=== PATIENT | male | born 1985 | race American Indian/Alaskan Native ===

== ENCOUNTER 2018-11-04 20:32 | Emergency (ER) | payer MEDICAID ==
--- NOTE | 2018-11-04 21:27 | EDM.PDOC ---
ED HPI GENERAL MEDICAL PROBLEM - General Stated Complaint: HURT FT MIGHT NEED STICHES Time Seen by Provider: 11/04/18 21:27 Source of Information: Reports: Patient, RN, RN Notes Reviewed History Limitations: Reports: No Limitations - Related Data Allergies Allergy/AdvReac Type Severity Reaction Status Date / Time No Known Allergies Allergy Verified 08/04/15 13:28 Home Meds: Home Meds Acetaminophen [Tylenol Extra Strength] 1,000 mg PO Q6H PRN 08/04/15 [History] Ibuprofen 800 mg PO Q8H PRN 08/04/15 [History] Past Medical History - Past Health History Medical/Surgical History: Denies Medical/Surgical History HEENT History: Reports: None Cardiovascular History: Reports: None Respiratory History: Reports: None Gastrointestinal History: Reports: None Genitourinary History: Reports: None Musculoskeletal History: Reports: None Neurological History: Reports: None Psychiatric History: Reports: None Endocrine/Metabolic History: Reports: None Hematologic History: Reports: None Immunologic History: Reports: None Oncologic (Cancer) History: Reports: None Dermatologic History: Reports: None - Infectious Disease History Infectious Disease History: Reports: None - Past Surgical History Head Surgeries/Procedures: Reports: None Social & Family History - Family History Family Medical History: Noncontributory - Caffeine Use Caffeine Use: Reports: Energy Drinks, Soda - Living Situation & Occupation Living situation: Reports: with Family Occupation: Employed
== END 2018-11-04 21:31 | disposition left against medical advice (07) ==
LOC: DL.ED 20:32
DX: Z53.21 Procedure and treatment not carried out due to patient leaving prior to being seen by health care provider (principal)

== ENCOUNTER 2019-02-08 21:56 | Emergency (ER) | payer MEDICAID ==
--- NOTE | 2019-02-08 23:26 | EDM.PDOC ---
ED HPI GENERAL MEDICAL PROBLEM - General Chief Complaint: Upper Extremity Injury/Pain Stated Complaint: BROKE OR DISLOCATED LEFT THUMB PER PT Time Seen by Provider: 02/08/19 23:10 Source of Information: Reports: Patient History Limitations: Reports: No Limitations - History of Present Illness INITIAL COMMENTS - FREE TEXT/NARRATIVE: This 34 yo male patient reports to the ED with pain in his left thumb. The patient reports he was lifting a tire out of a car when the lid of the trunk fell against his thumb and bent it back. Pt with limited ROM, pain, and numbness to thumb. Onset: Today Duration: Minutes: Location: Reports: Upper Extremity, Left Quality: Reports: Ache, Dull Severity: Moderate Improves with: Reports: None Worsens with: Reports: None Context: Reports: Trauma Left Finger-Thumb Pain Score (Numeric/FACES): 6 - Related Data Allergies Allergy/AdvReac Type Severity Reaction Status Date / Time No Known Allergies Allergy Verified 08/04/15 13:28 Home Meds: Home Meds Acetaminophen [Tylenol Extra Strength] 1,000 mg PO Q6H PRN 08/04/15 [History] Ibuprofen 800 mg PO Q8H PRN 08/04/15 [History] Past Medical History - Past Health History Medical/Surgical History: Denies Medical/Surgical History HEENT History: Reports: None Cardiovascular History: Reports: None Respiratory History: Reports: None Gastrointestinal History: Reports: None Genitourinary History: Reports: None Musculoskeletal History: Reports: None Neurological History: Reports: None Psychiatric History: Reports: None Endocrine/Metabolic History: Reports: None Hematologic History: Reports: None Immunologic History: Reports: None Oncologic (Cancer) History: Reports: None Dermatologic History: Reports: None - Infectious Disease History Infectious Disease History: Reports: None - Past Surgical History Head Surgeries/Procedures: Reports: None Social & Family History - Family History Family Medical History: Noncontributory - Tobacco Use Smoking Status *Q: Never Smoker - Caffeine Use Caffeine Use: Reports: Energy Drinks, Soda - Recreational Drug Use Recreational Drug Use: No - Living Situation & Occupation Living situation: Reports: with Family Occupation: Employed Review of Systems - Review of Systems Review Of Systems: ROS reveals no pertinent complaints other than HPI. ED EXAM, GENERAL - Physical Exam Exam: See Below Exam Limited By: No Limitations General Appearance: Alert, WD/WN, Mild Distress Eye Exam: Bilateral Eye: EOMI, Normal Inspection, PERRL Ears: Normal External Exam, Normal Canal, Hearing Grossly Normal, Normal TMs Nose: Normal Inspection, Normal Mucosa, No Blood Throat/Mouth: Normal Inspection, Normal Lips, Normal Teeth, Normal Gums, Normal Oropharynx, Normal Voice, No Airway Compromise Head: Atraumatic, Normocephalic Neck: Normal Inspection, Supple, Non-Tender, Full Range of Motion Respiratory/Chest: No Respiratory Distress, Lungs Clear, Normal Breath Sounds, No Accessory Muscle Use, Chest Non-Tender Cardiovascular: Normal Peripheral Pulses, Regular Rate, Rhythm, No Edema, No Gallop, No JVD, No Murmur, No Rub GI/Abdominal: Normal Bowel Sounds, Soft, Non-Tender, No Organomegaly, No Distention, No Abnormal Bruit, No Mass (Male) Exam: Deferred Rectal (Males) Exam: Deferred Back Exam: Normal Inspection, Full Range of Motion, NT Extremities: Other (left hand/thumb pain) Neurological: Alert, Oriented, CN II-XII Intact, Normal Cognition, Normal Gait, Normal Reflexes, No Motor/Sensory Deficits Psychiatric: Normal Affect, Normal Mood Skin Exam: Warm, Dry, Intact, Normal Color, No Rash Lymphatic: No Adenopathy Course - Vital Signs Last Recorded V/S: Last Vital Signs Temp 36.6 C 02/08/19 22:15 Pulse 112 H 02/08/19 22:15 Resp 20 02/08/19 22:15 BP 146/90 H 02/08/19 22:15 Pulse Ox 94 L 02/08/19 22:15 - Orders/Labs/Meds Orders: Active Orders 24 hr Category Date Time Status Fingers Thumb Lt FA [CR] Urgent Exams 02/08/19 22:29 Taken Departure - Departure Time of Disposition: 23:25 Disposition: Home, Self-Care 01 Condition: Fair Clinical Impression: Strain of left thumb - Discharge Information *PRESCRIPTION DRUG MONITORING PROGRAM REVIEWED*: Not Applicable *COPY OF PRESCRIPTION DRUG MONITORING REPORT IN PATIENT DEEJAY: Not Applicable Instructions: Cast or Splint Care, Adult, [id number] Care Plan Goals: The patient was advised of the examination and x-ray results during the visit. The patient was placed in a left thumb spica splint (manufactured velcro splint ) to support healing. The patient was encouraged to rest, ice and elevate the left hand over the next 48 hours. The patient should follow-up with his primary care facility if he is still having increased pain after a week. If the patient has any additional symptoms or concerns, the patient should either return to the emergency department or visit his primary care facility. - My Orders Last 24 Hours: My Active Orders 02/08/19 22:29 Fingers Thumb Lt FA [CR] Urgent - Assessment/Plan Last 24 Hours: My Active Orders 02/08/19 22:29 Fingers Thumb Lt FA [CR] Urgent
[2019-02-08 23:32] VITALS: BP 153/94; PULSE 102
== END 2019-02-08 23:35 | disposition home or self-care (01) ==
LOC: DL.ED 21:56
DX: S56.312A Strain of extensor or abductor muscles, fascia and tendons of left thumb at forearm level, initial encounter (principal); W20.8XXA Other cause of strike by thrown, projected or falling object, initial encounter
CPT/HCPCS: 73140-FA; 99283-25

== ENCOUNTER 2019-06-04 15:03 | Emergency (ER) | payer MEDICAID ==
[2019-06-04] MEDS ORDERED: Ketorolac 30 MG/ML SDV IM ONE (16:41)
[2019-06-04 19:07] VITALS: BP 134/110; PULSE 93
[2019-06-04] MEDS ORDERED: Ibuprofen 600 MG Tab PO ONE (19:39)
--- NOTE | 2019-06-09 15:34 | EDM.PDOC ---
Scribed by Molly Chávez 06/[birth year]/19 1939 for Jaclyn Reed PA-C ED HPI GENERAL MEDICAL PROBLEM - General Chief Complaint: Chest Pain Stated Complaint: SLIPPED ON ICE/CHEST HURTS Time Seen by Provider: 06/04/19 19:34 Source of Information: Reports: Patient History Limitations: Reports: No Limitations - History of Present Illness INITIAL COMMENTS - FREE TEXT/NARRATIVE: ED ambulatory with c/o right rib pain, fell night. Thinks maybe fell on something but no idea what Some SOB. Pain to take deep breath. No fever. Not noted any bruising. Has not taken anything for pain. Left Chest Pain Score (Numeric/FACES): 4 - Related Data Allergies Allergy/AdvReac Type Severity Reaction Status Date / Time No Known Allergies Allergy Verified 06/04/19 16:39 Past Medical History - Past Health History Medical/Surgical History: Denies Medical/Surgical History HEENT History: Reports: None Cardiovascular History: Reports: None Respiratory History: Reports: None Gastrointestinal History: Reports: None Genitourinary History: Reports: None Musculoskeletal History: Reports: None, Fracture Other Musculoskeletal History: Fx Rt ankle with ligiment tear. Neurological History: Reports: None Psychiatric History: Reports: None Endocrine/Metabolic History: Reports: None Hematologic History: Reports: None Immunologic History: Reports: None Oncologic (Cancer) History: Reports: None Dermatologic History: Reports: None - Infectious Disease History Infectious Disease History: Reports: None - Past Surgical History Head Surgeries/Procedures: Reports: None GI Surgical History: Reports: Cholecystectomy Social & Family History - Family History Family Medical History: Noncontributory - Tobacco Use Smoking Status *Q: Former Smoker Years of Tobacco use: 7 Packs/Tins Daily: 0.1 Used Tobacco, but Quit: Yes Month/Year Tobacco Last Used: jun - Caffeine Use Caffeine Use: Reports: Energy Drinks, Soda - Recreational Drug Use Recreational Drug Use: No - Living Situation & Occupation Living situation: Reports: with Family Occupation: Employed ED ROS GENERAL - Review of Systems Review Of Systems: Comprehensive ROS is negative, except as noted in HPI. ED EXAM, GENERAL - Physical Exam Exam: See Below Exam Limited By: No Limitations General Appearance: Alert, Mild Distress Eye Exam: Bilateral Eye: EOMI Ears: Normal External Exam, Hearing Grossly Normal Nose: Normal Inspection Throat/Mouth: Normal Inspection Head: Atraumatic, Normocephalic Neck: Normal Inspection Respiratory/Chest: No Respiratory Distress, Lungs Clear, Decreased Breath Sounds. No: Crackles, Rales, Rhonchi, Wheezing Cardiovascular: Normal Peripheral Pulses, Regular Rate, Rhythm GI/Abdominal: Normal Bowel Sounds Back Exam: Full Range of Motion Extremities: Normal Inspection Neurological: Alert, Oriented, Normal Cognition Psychiatric: Normal Affect, Normal Mood Skin Exam: Warm, Dry, Intact, Normal Color. No: Ecchymosis Course - Vital Signs Last Recorded V/S: Last Vital Signs Temp 97.1 F 06/04/19 19:07 Pulse 93 06/04/19 19:07 Resp 16 06/04/19 19:07 BP 134/110 H 06/04/19 19:07 Pulse Ox 99 06/04/19 19:07 - Orders/Labs/Meds Meds: Medications Discontinued Medications Generic Name Dose Route Start Last Admin Trade Name Brianq PRN Reason Stop Dose Admin Ibuprofen 600 mg 06/04/19 19:39 06/04/19 19:43 Motrin PO 06/04/19 19:40 600 mg ONETIME ONE Administration Ketorolac Tromethamine 30 mg 06/04/19 16:41 06/04/19 16:51 Toradol IM 06/04/19 16:42 30 mg ONETIME ONE Administration - Radiology Interpretation Free Text/Narrative:: Rib x-rays: No acute findings. See rad report. Departure - Departure Time of Disposition: 19:40 Disposition: Home, Self-Care 01 Condition: Good Clinical Impression: Rib pain on right side - Discharge Information *PRESCRIPTION DRUG MONITORING PROGRAM REVIEWED*: No *COPY OF PRESCRIPTION DRUG MONITORING REPORT IN PATIENT DEEJAY: No Instructions: Rib Contusion Forms: ED Department Discharge Additional Instructions: deep breathing exercises every hour while awake with incentive spirometer splint chest area with cough sneezing or twisting movements alternate tylenol 650mg and ibuprofen 600mg every 4 hours as needed for discomfort heat or ice to area for comfort follow up in clinic next week if not improving Sepsis Event Note - Evaluation Sepsis Screening Result: No Definite Risk - Focused Exam Date Exam was Performed: 06/09/19 Time Exam was Performed: 15:34 I have read and agree with the documentation that has been completed regarding this visit. By signing this record, I attest that the documentation was completed in my physical presence and is an accurate record of the encounter.
== END 2019-06-04 19:50 | disposition home or self-care (01) ==
LOC: DL.ED 15:03
DX: R07.81 Pleurodynia (principal); Z90.49 Acquired absence of other specified parts of digestive tract; Z87.891 Personal history of nicotine dependence; W19.XXXA Unspecified fall, initial encounter
CPT/HCPCS: 71101; 96372; 99285; A9270; J1885

== ENCOUNTER 2019-12-27 11:53 | Emergency (ER) | payer MEDICAID ==
[2019-12-27] MEDS ORDERED: Sodium Chloride 0.9% 10 ML Syringe FLUSH PRN (12:15)
--- NOTE | 2019-12-27 12:22 | EDM.PDOC ---
ED HPI GENERAL MEDICAL PROBLEM - General Chief Complaint: General Stated Complaint: RIGHT HAND RED & SWELLING Time Seen by Provider: 12/27/19 12:10 Source of Information: Reports: Patient History Limitations: Reports: No Limitations - History of Present Illness INITIAL COMMENTS - FREE TEXT/NARRATIVE: This 34 yo male patient reports to the ED with redness and swelling of his right hand and both feet. The patient reports he noticed the swelling in his right hand 2 days ago. The patient does not know of any injuries to the hand. The patient reports he noticed the redness and swelling in his feet yesterday morning. 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 Onset Date: 12/25/19 Duration: Constant, Getting Worse Location: Reports: Upper Extremity, Right, Lower Extremity, Left, Lower Extremity, Right Quality: Reports: Ache, Dull Severity: Moderate Improves with: Reports: None Worsens with: Reports: None Context: Reports: Other Right Hand Pain Score (Numeric/FACES): 7 - Related Data Allergies Allergy/AdvReac Type Severity Reaction Status Date / Time No Known Allergies Allergy Verified 12/27/19 12:04 Home Meds: Home Meds . [No Known Home Meds] 12/27/19 [History] Past Medical History - Past Health History Medical/Surgical History: Denies Medical/Surgical History HEENT History: Reports: None Cardiovascular History: Reports: None Respiratory History: Reports: None Gastrointestinal History: Reports: Cholelithiasis Genitourinary History: Reports: None Musculoskeletal History: Reports: Fracture Other Musculoskeletal History: Fx Rt ankle with ligiment tear. Neurological History: Reports: None Psychiatric History: Reports: None Endocrine/Metabolic History: Reports: None Hematologic History: Reports: None Immunologic History: Reports: None Oncologic (Cancer) History: Reports: None Dermatologic History: Reports: None - Infectious Disease History Infectious Disease History: Reports: None - Past Surgical History Head Surgeries/Procedures: Reports: None GI Surgical History: Reports: Cholecystectomy Social & Family History - Family History Family Medical History: Noncontributory - Tobacco Use Smoking Status *Q: Never Smoker Second Hand Smoke Exposure: No - Caffeine Use Caffeine Use: Reports: Energy Drinks, Soda - Living Situation & Occupation Living situation: Reports: with Family Occupation: Employed ED ROS GENERAL - Review of Systems Review Of Systems: Comprehensive ROS is negative, except as noted in HPI. ED EXAM, GENERAL - Physical Exam Exam: See Below Exam Limited By: No Limitations General Appearance: Alert, WD/WN, Moderate Distress Eye Exam: Bilateral Eye: EOMI, Normal Inspection, PERRL Ears: Normal External Exam, Normal Canal, Hearing Grossly Normal, Normal TMs Nose: Normal Inspection, Normal Mucosa, No Blood Throat/Mouth: Normal Inspection, Normal Lips, Normal Teeth, Normal Gums, Normal Oropharynx, Normal Voice, No Airway Compromise Head: Atraumatic, Normocephalic Neck: Normal Inspection, Supple, Non-Tender, Full Range of Motion Respiratory/Chest: No Respiratory Distress, Lungs Clear, Normal Breath Sounds, No Accessory Muscle Use, Chest Non-Tender Cardiovascular: Normal Peripheral Pulses, Regular Rate, Rhythm, No Edema, No Gallop, No JVD, No Murmur, No Rub GI/Abdominal: Normal Bowel Sounds, Soft, Non-Tender, No Organomegaly, No Distention, No Abnormal Bruit, No Mass (Male) Exam: Deferred Rectal (Males) Exam: Deferred Back Exam: Normal Inspection, Full Range of Motion, NT Extremities: Arm Pain (Right hand swelling, redness and pain with palpation), Leg Pain (bilateral foot redness and swelling) Neurological: Alert, Oriented, CN II-XII Intact, Normal Cognition, Normal Gait, Normal Reflexes, No Motor/Sensory Deficits Psychiatric: Normal Affect, Normal Mood Skin Exam: Erythema (Right hand and flexor surface of feet), Increased Warmth (right hand), Wound/Incision (small healing wound to right lateral hand) Lymphatic: No Adenopathy Course - Vital Signs Last Recorded V/S: Last Vital Signs Temp 37.6 C 12/27/19 13:39 Pulse 121 H 12/27/19 12:00 Resp 18 12/27/19 12:00 BP 152/82 H 12/27/19 12:00 Pulse Ox 97 12/27/19 12:00 - Orders/Labs/Meds Orders: Active Orders 24 hr Category Date Time Status CULTURE BLOOD [BC] Stat Lab 12/27/19 12:16 Ordered CULTURE BLOOD [BC] Stat Lab 12/27/19 12:16 Ordered Sodium Chloride 0.9% [Saline Flush] Med 12/27/19 12:15 Ordered 10 ml FLUSH ASDIRECTED PRN Blood Culture x2 Reflex Set [OM.PC] Stat Oth 12/27/19 12:15 Ordered Saline Lock Insert [OM.PC] Routine Oth 12/27/19 12:15 Ordered Medication Orders Sodium Chloride (Saline Flush) 10 ml FLUSH ASDIRECTED PRN PRN Reason: Keep Vein Open Last Admin: 12/27/19 12:20 Dose: 10 ml Documented by: ANDRES Labs: Laboratory Tests 12/27/19 12/27/19 12/27/19 Range/Units 12:24 12:24 12:24 WBC 15.8 H (5.0-10.0) 10^3/uL RBC 3.75 L (4.6-6.2) 10^6/uL Hgb 11.7 L D (14.0-18.0) g/dL Hct 35.5 L (40.0-54.0) % MCV 94.7 D (80-100) fL MCH 31.2 (27.0-34.0) pg MCHC 33.0 (33.0-35.0) g/dL Plt Count 140 L D (150-450) 10^3/uL Neut % (Auto) 74.6 (42.2-75.2) % Lymph % (Auto) 15.1 L (20.5-50.1) % Pershing % (Auto) 9.9 H (2-8) % Eos % (Auto) 0.2 L (1.0-3.0) % Baso % (Auto) 0.2 (0.0-1.0) % Sodium 130 L (136-145) mmol/L Potassium 3.2 L (3.5-5.1) mmol/L Chloride 97 L (98-107) mmol/L Carbon Dioxide 25 (21-32) mmol/L Anion Gap 11.2 (7-13) mEq/L BUN 8 (7-18) mg/dL Creatinine 0.80 (0.70-1.30) mg/dL Est Cr Clr Drug Dosing 165.52 mL/min Estimated GFR (MDRD) > 60 BUN/Creatinine Ratio 10.0 (No establ ref range) Glucose 103 H (74-99) mg/dL Lactic Acid 1.4 (0.4-2.0) mmol/L Calcium 8.1 L (8.5-10.1) mg/dL Total Bilirubin 3.3 H (0.2-1.0) mg/dL AST 139 H (15-37) U/L ALT 35 (16-63) U/L Alkaline Phosphatase 217 H (46-116) U/L Total Protein 9.2 H (6.4-8.2) g/dL Albumin 2.6 L (3.4-5.0) g/dL Globulin 6.6 Albumin/Globulin Ratio 0.39 Meds: Medications Generic Name Dose Route Start Last Admin Trade Name Freq PRN Reason Stop Dose Admin Sodium Chloride 10 ml 12/27/19 12:15 12/27/19 12:20 Saline Flush FLUSH 10 ml ASDIRECTED PRN Administration Keep Vein Open Discontinued Medications Generic Name Dose Route Start Last Admin Trade Name Freq PRN Reason Stop Dose Admin Vancomycin HCl 1.75 gm/ Sodium 500 mls @ 334 mls/hr 12/27/19 13:07 12/27/19 13:37 Chloride IV 12/27/19 14:36 250 mls/hr ONETIME ONE Administration Departure - Departure Time of Disposition: 14:57 Disposition: Home, Self-Care 01 Condition: Fair Clinical Impression: Cellulitis of hand - Discharge Information *PRESCRIPTION DRUG MONITORING PROGRAM REVIEWED*: Not Applicable *COPY OF PRESCRIPTION DRUG MONITORING REPORT IN PATIENT DEEJAY: Not Applicable Instructions: Cellulitis, Adult, [id number] Forms: ED Department Discharge Care Plan Goals: The patient was advised of the examination, lab and x-ray results during the visit. The patient was given an IV dose of Vancomycin while in the ED. The patient was discharged with a script for Bactrim DS to take 1 by mouth 2 times per day for 10 days and Keflex (500 mg) #40 to take 1 by mouth 4 times per day for 10 days. The patient was encouraged to follow-up with his primary care facility for continued evaluatin and management. If the patient has any additional symptoms or concerns, the patient should either return to the emergency department or visit his primary care facility. Sepsis Event Note (ED) - Evaluation Sepsis Screening Result: No Definite Risk - Focused Exam Vital Signs: Vital Signs Temp Pulse Resp BP Pulse Ox 12/27/19 13:39 37.6 C 12/27/19 12:00 37.9 C 121 H 18 152/82 H 97 - My Orders Last 24 Hours: My Active Orders 12/27/19 12:15 Sodium Chloride 0.9% [Saline Flush] 10 ml FLUSH ASDIRECTED PRN Blood Culture x2 Reflex Set [OM.PC] Stat Saline Lock Insert [OM.PC] Routine 12/27/19 12:16 CULTURE BLOOD [BC] Stat CULTURE BLOOD [BC] Stat - Assessment/Plan Last 24 Hours: My Active Orders 12/27/19 12:15 Sodium Chloride 0.9% [Saline Flush] 10 ml FLUSH ASDIRECTED PRN Blood Culture x2 Reflex Set [OM.PC] Stat Saline Lock Insert [OM.PC] Routine 12/27/19 12:16 CULTURE BLOOD [BC] Stat CULTURE BLOOD [BC] Stat
--- NOTE | 2019-12-27 12:45 | CR ---
PROCEDURE INFORMATION: Exam: XR Right Hand Exam date and time: 12/27/2019 12:30 PM Age: 34 years old Clinical indication: Other: Right hand swelling and erythema TECHNIQUE: Imaging protocol: XR Right hand. Views: 3 or more views. COMPARISON: No relevant prior studies available. FINDINGS: Bones/joints: Healed fracture of mid 5th metacarpal. No acute fracture. No degenerative spurring or osseous erosion. No periosteal thickening. Soft tissues: Medial soft tissue swelling. No hematoma or soft tissue foreign body. IMPRESSION: Medial mid hand soft tissue swelling.
[2019-12-27 13:07] LABS: ANION GAP 11.2 mEq/L (7-13); CHLORIDE,CL 97 mmol/L (98-107); SODIUM,NA 130 mmol/L (136-145)
[2019-12-27] MEDS ORDERED: Vancomycin 1.75 GM in Sodium Chloride 0.9% 500 ML IV ONE (13:07)
[2019-12-27] MEDS ORDERED: Acetaminophen/HYDROcodone 325-5 MG Tab PO ONE (15:34)
[2019-12-27 15:43] VITALS: BP 135/72; PULSE 114
== END 2019-12-27 15:50 | disposition home or self-care (01) ==
LOC: DL.ED 11:53
DX: L03.113 Cellulitis of right upper limb (principal)
CPT/HCPCS: 36415; 73130-RT; 80053; 83605; 85025; 87040; 96365; 96366; 99283-25; A9270-GY; J3370; J7040

== ENCOUNTER 2022-01-28 14:45 | Emergency (ER) | payer MEDICAID ==
[2022-01-28] MEDS ORDERED: Sodium Chloride 0.9% 1,000 ML IV ONE (16:33)
[2022-01-28] MEDS ORDERED: Iopamidol 612 MG/ML 100 ML Bottle IVPUSH ONE (17:08)
[2022-01-28] MEDS ORDERED: Potassium Chloride 10 MEQ Tab.ER PO ONE (17:26)
== END 2022-01-28 20:12 | disposition home or self-care (01) ==
LOC: DL.ED 14:45
DX: L03.211 Cellulitis of face (principal); I10 Essential (primary) hypertension
CPT/HCPCS: 36415; 70487; 80053; 83605; 84145; 85025; 86140; 87040; 96361; 96365; 96366; 99284; A9270; J3370; J7030; J7040; Q9967

== ENCOUNTER 2022-06-29 17:45 | Emergency (ER) | payer MEDICAID ==
[2022-06-29] MEDS ORDERED: Pantoprazole 40 MG Vial IVPUSH ONE (19:01)
[2022-06-29 19:17] LABS: PTT,PARTIAL THROMBOPLSTIN TIME 30.6 SEC (22.0-34.0)
[2022-06-29 19:24] LABS: AMPHETAMINES,URINE NEGATIVE (NEGATIVE); BARBITURATES,URINE NEGATIVE (NEGATIVE); BENZODIAZEPINE,URINE NEGATIVE (NEGATIVE); MDMA (ECSTASY), URINE NEGATIVE (NEGATIVE); METHADONE,URINE NEGATIVE (NEGATIVE); METHAMPHETAMINES,URINE NEGATIVE (NEGATIVE); OPIATES,URINE NEGATIVE (NEGATIVE); OXYCODONE,URINE NEGATIVE (NEGATIVE); PHENCYCLIDINE,URINE NEGATIVE (NEGATIVE); TCA,URINE NEGATIVE (NEGATIVE)
[2022-06-29 19:29] LABS: ANION GAP 12.4 mEq/L (7-13)
[2022-06-29 19:58] LABS: CORONAVIRUS COVID-19 NAA NEGATIVE (NEGATIVE); RESPIRATORY SYNCYTIAL VIR NAA NEGATIVE (NEGATIVE)
[2022-06-29 22:22] VITALS: BP 113/72; PULSE 101
== END 2022-06-29 22:38 ==
LOC: DL.ED 17:45
DX: K92.2 Gastrointestinal hemorrhage, unspecified (principal); K72.90 Hepatic failure, unspecified without coma; E72.20 Disorder of urea cycle metabolism, unspecified; I10 Essential (primary) hypertension; Y90.8 Blood alcohol level of 240 mg/100 ml or more; Z20.822 Contact with and (suspected) exposure to COVID-19
CPT/HCPCS: 0241U; 36415; 36430; 80053; 80305; 80307; 82140; 82150; 82272; 83605; 83690; 83735; 84443; 85018; 85025; 85610; 85730; 86140; 86850; 86900; 86901; 86920; 86922; 96374; 99284; C9113; P9016; 99285

== ENCOUNTER 2022-07-28 23:20 | Emergency (ER) | payer MEDICAID ==
[2022-07-28 22:36] LABS: ANION GAP 11.4 mEq/L (7-13)
[~2022-07-28 23:20] MED LIST: Bacitracin Oint 1 GM U/D Packet TOP ONE; Lidocaine 1% 5 ML VIAL INJECT ONE
[2022-07-28 23:32] LABS: AMPHETAMINES,URINE NEGATIVE (NEGATIVE); BARBITURATES,URINE NEGATIVE (NEGATIVE); BENZODIAZEPINE,URINE NEGATIVE (NEGATIVE); MDMA (ECSTASY), URINE NEGATIVE (NEGATIVE); METHADONE,URINE NEGATIVE (NEGATIVE); METHAMPHETAMINES,URINE POSITIVE (NEGATIVE); OPIATES,URINE NEGATIVE (NEGATIVE); OXYCODONE,URINE NEGATIVE (NEGATIVE); PHENCYCLIDINE,URINE NEGATIVE (NEGATIVE); TCA,URINE NEGATIVE (NEGATIVE)
[2022-07-29 02:47] VITALS: BP 133/93; PULSE 113
== END 2022-07-29 02:32 | disposition home or self-care (01) ==
LOC: DL.ED 23:20
DX: S01.312A Laceration without foreign body of left ear, initial encounter (principal); D64.9 Anemia, unspecified; I10 Essential (primary) hypertension; Y04.0XXA Assault by unarmed brawl or fight, initial encounter
CPT/HCPCS: 12011; 36415; 36430; 70450; 72125; 80053; 80143; 80179; 80305-QW; 80307; 81001; 83605; 85025; 86850; 86900; 86901; 86920; 86922; 87040; 99284; A9270-GY; J3490; P9016

== ENCOUNTER 2022-07-30 16:07 | Emergency (ER) | payer MEDICAID ==
[2022-07-30 17:13] LABS: CHLORIDE,CL 92 mmol/L (98-107)
[2022-07-30 17:14] LABS: ESTIMATED GFR 66 mL/min (>=60)
[2022-07-30 17:22] VITALS: BP 108/49; PULSE 116
[2022-07-30 17:24] LABS: PTT,PARTIAL THROMBOPLSTIN TIME 36.3 SEC (22.0-34.0)
[2022-07-30] MEDS ORDERED: Sodium Chloride 0.9% 1,000 ML IV ONE (17:28)
[2022-07-30] MEDS ORDERED: Iopamidol 612 MG/ML 100 ML Bottle IVPUSH ONE (17:34)
[2022-07-30 17:44] LABS: CORONAVIRUS COVID-19 NAA NEGATIVE (NEGATIVE); RESPIRATORY SYNCYTIAL VIR NAA NEGATIVE (NEGATIVE)
[2022-07-30] MEDS ORDERED: Piperacillin/Tazobactam 4.5 GM in Sodium Chloride 0.9% 100 ML IV ONE (17:58)
[2022-07-30] MEDS ORDERED: Magnesium Sulfate/Water 2 GM in Premix Bag 1 BAG IV ONE (19:11)
[2022-07-30] MEDS ORDERED: Albumin Human 25 GM in Premix Bag 1 BAG IV ONE (19:20)
[2022-07-30] MEDS ORDERED: Furosemide 100 MG/10 ML SDV IVPUSH ONE (19:20)
[2022-07-30 19:48] LABS: METHAMPHETAMINES,URINE POSITIVE (NEGATIVE)
[2022-07-30 19:49] LABS: AMPHETAMINES,URINE NEGATIVE (NEGATIVE); BARBITURATES,URINE POSITIVE (NEGATIVE); BENZODIAZEPINE,URINE NEGATIVE (NEGATIVE); MDMA (ECSTASY), URINE NEGATIVE (NEGATIVE); METHADONE,URINE NEGATIVE (NEGATIVE); OPIATES,URINE NEGATIVE (NEGATIVE); OXYCODONE,URINE NEGATIVE (NEGATIVE); PHENCYCLIDINE,URINE NEGATIVE (NEGATIVE); TCA,URINE NEGATIVE (NEGATIVE)
[2022-07-31 08:56] LABS: ANION GAP 16.5 mEq/L (7-13); SODIUM,NA 128 mmol/L (136-145)
== END 2022-07-30 20:30 ==
LOC: DL.ED 16:07
DX: A41.9 Sepsis, unspecified organism (principal); K70.31 Alcoholic cirrhosis of liver with ascites; E87.1 Hypo-osmolality and hyponatremia; E83.42 Hypomagnesemia; E88.09 Other disorders of plasma-protein metabolism, not elsewhere classified; D64.9 Anemia, unspecified; I10 Essential (primary) hypertension; Z20.822 Contact with and (suspected) exposure to COVID-19
CPT/HCPCS: 0241U; 36415; 71045; 74177; 80053; 80305-QW; 80307; 81001; 82150; 83605; 83690; 83735; 83880; 84145; 84484; 85025; 85610; 85730; 86140; 87040; 93005; 93010; 96365; 96367; 96368; 96375; 99285; 99285-25; J1940; J2543; J3475; J7030; J7050; P9047; Q9967

== ENCOUNTER 2022-08-23 12:30 | Emergency (ER) | payer MEDICAID ==
[2022-08-23 14:23] LABS: ANION GAP 13.4 mEq/L (7-13)
[2022-08-23] MEDS ORDERED: Furosemide 40 MG/4 ML VIAL IVPUSH ONE (14:39)
[2022-08-23 21:45] VITALS: BP 117/54; PULSE 106
== END 2022-08-23 21:43 | disposition home or self-care (01) ==
LOC: DL.ED 12:30
DX: D64.9 Anemia, unspecified (principal); I10 Essential (primary) hypertension; Z79.899 Other long term (current) drug therapy
CPT/HCPCS: 36415; 36430; 80053; 85025; 85610; 86850; 86900; 86901; 86920; 86922; 96374; 99283; 99284-25; J1940; P9016

== ENCOUNTER 2022-10-04 11:17 | Emergency (ER) | payer MEDICAID ==
[2022-10-04 11:41] LABS: HEMATOCRIT 22.3 % (40.0-54.0)
[2022-10-04] MEDS ORDERED: Sodium Chloride 0.9% 10 ML Syringe FLUSH PRN (11:55)
[2022-10-04] MEDS ORDERED: Furosemide 40 MG/4 ML VIAL IVPUSH ONE (11:55)
[2022-10-04] MEDS ORDERED: diphenhydrAMINE 50 MG/ML SDV IV ONE (11:55)
[2022-10-04] MEDS ORDERED: Sodium Chloride 0.9% 10 ML Syringe FLUSH ONE (12:01)
[2022-10-04] MEDS ORDERED: Furosemide 20 MG/2 ML VIAL IVPUSH ONE (16:46)
[2022-10-04 19:59] VITALS: BP 108/48; PULSE 105
== END 2022-10-04 20:00 | disposition home or self-care (01) ==
LOC: DL.ED 11:17
DX: K72.10 Chronic hepatic failure without coma (principal); D64.9 Anemia, unspecified; I10 Essential (primary) hypertension; Z79.899 Other long term (current) drug therapy
CPT/HCPCS: 36415; 36430; 85014; 85018; 86850; 86900; 86901; 86920; 86922; 96374; 99283; 99284-25; J1940; J3490; P9016

== ENCOUNTER 2022-10-18 12:01 | Emergency (ER) | payer MEDICAID ==
[2022-10-18 12:24] LABS: BASOPHILS PERCENT AUTO 0.3 % (0.0-1.0); EOSINOPHILS PERCENT AUTO 4.9 % (1.0-3.0); HEMATOCRIT 26.3 % (40.0-54.0); HEMOGLOBIN 8.5 g/dL (14.0-18.0); LYMPHOCYTES PERCENT AUTO 37.1 % (20.5-50.1); MEAN CORPUSCULAR HGB CONC 32.3 g/dL (33.0-35.0); MEAN CORPUSCULAR VOLUME 89.8 fL (80-100); MONOCYTES PERCENT AUTO 9.1 % (2-8); NEUTROPHILS PERCENT AUTO 48.6 % (42.2-75.2); PLATELET COUNT,PLT 83 10^3/uL (150-450); RED BLOOD CELL COUNT 2.93 10^6/uL (4.6-6.2); WHITE BLOOD CELL COUNT,WBC 3.5 10^3/uL (5.0-10.0)
[2022-10-18 12:31] VITALS: BP 132/76; PULSE 89
== END 2022-10-18 12:31 | disposition home or self-care (01) ==
LOC: DL.ED 12:01
DX: D64.9 Anemia, unspecified (principal); Z86.16 Personal history of COVID-19; Z79.899 Other long term (current) drug therapy
CPT/HCPCS: 36415; 85025; 99283; 99284

== ENCOUNTER 2023-01-14 17:27 | Emergency (ER) | payer MEDICAID ==
[2023-01-14] MEDS ORDERED: Sodium Chloride 0.9% 10 ML Syringe FLUSH PRN ×2 (17:35→17:37)
[2023-01-14] MEDS ORDERED: Sodium Chloride 0.9% 1,000 ML IV ONE ×2 (17:37→18:23)
[2023-01-14] MEDS ORDERED: Acetaminophen 325 MG Supp RECTAL ONE (17:38)
[2023-01-14] MEDS ORDERED: Acetaminophen 650 MG Supp RECTAL STA (17:39)
[2023-01-14 18:00] LABS: HEMATOCRIT 27.7 % (40.0-54.0); HEMOGLOBIN 9.3 g/dL (14.0-18.0); MEAN CORPUSCULAR HEMOGLOBIN 27.3 pg (27.0-34.0); MEAN CORPUSCULAR HGB CONC 33.6 g/dL (33.0-35.0); MEAN CORPUSCULAR VOLUME 81.2 fL (80-100); PLATELET COUNT,PLT 55 10^3/uL (150-450); RED BLOOD CELL COUNT 3.41 10^6/uL (4.6-6.2)
[2023-01-14 18:04] LABS: O2 DELIVERY DEVICE ROOM AIR
[2023-01-14 18:05] LABS: BASE EXCESS ARTERIAL -6 mmol/L ((-2)-(+3)); BICARBONATE,ARTERIAL 16.2 mmol/L (22-26); O2 SATURATION ARTERIAL 97 % (95-100); PCO2 ARTERIAL 22 mmHg (35-45); PH,ARTERIAL 7.49 (7.35-7.45); PO2 ARTERIAL 78 mmHg (70-100)
[2023-01-14 18:06] LABS: ALLEN TEST POSITIVE
[2023-01-14 18:10] LABS: WHITE BLOOD CELL COUNT,WBC 1.4 10^3/uL (5.0-10.0)
[2023-01-14 18:22] LABS: LACTIC ACID 2.1 mmol/L (0.4-2.0)
[2023-01-14 18:24] LABS: INR 1.6 (0.9-1.2); PROTHROMBIN TIME 15.7 SEC (9.0-12.0); PTT,PARTIAL THROMBOPLSTIN TIME 32.7 SEC (22.0-34.0)
[2023-01-14 18:25] LABS: ALANINE AMINOTRANSFERASE,ALT 39 U/L (16-63); ALBUMIN 2.6 g/dL (3.4-5.0); ALKALINE PHOSPHATASE 140 U/L (46-116); AMYLASE 43 U/L (25-115); ANION GAP 15.7 mEq/L (7-13); ASPARTATE AMNIOTRANSFERASE,AST 111 U/L (15-37); BILIRUBIN TOTAL 8.2 mg/dL (0.2-1.0); BLOOD UREA NITROGEN,BUN 18 mg/dL (7-18); BUN/CREATININE RATIO 17.8 (No establ ref range); C-REACTIVE PROTEIN 4.9 mg/dL (0.0-0.9); CALCIUM 8.2 mg/dL (8.5-10.1); CARBON DIOXIDE,CO2 19 mmol/L (21-32); CHLORIDE,CL 97 mmol/L (98-107); CREATINE KINASE,CK 378 U/L (39-308); CREATININE 1.01 mg/dL (0.70-1.30); EST CRCL DRUG DOSING (CG) 97.82 mL/min; GLUCOSE RANDOM 119 mg/dL (70-99); LIPASE 139 U/L (73-393); MAGNESIUM 1.6 mg/dL (1.8-2.4); POTASSIUM,K 3.7 mmol/L (3.5-5.1); PROTEIN TOTAL,TP 7.5 g/dL (6.4-8.2); SODIUM,NA 128 mmol/L (136-145); TSH ULTRASENSITIVE 0.19 uIU/mL (0.36-3.74)
[2023-01-14 18:29] LABS: A/G RATIO 0.53; ACETAMINOPHEN 0 ug/mL (10-30 (Therapeutic)); ESTIMATED GFR 99 mL/min (>=60)
[2023-01-14 18:30] LABS: ETHANOL BLOOD MEDICAL < 3 mg/dL (0)
[2023-01-14 18:31] LABS: BAND PERCENT MAN 22 %; LYMPHOCYTES PERCENT MAN 35 % (20-50); MONOCYTES PERCENT MAN 12 % (2-8); SEG NEUTROPHILS PERCENT MAN 31 % (42-75)
[2023-01-14 18:35] LABS: B-TYPE NATRIURETIC PEPTIDE,BNP 166 pg/ml (0-100)
[2023-01-14 18:42] LABS: APPEARANCE,URINE CLEAR (CLEAR); BILIRUBIN,URINE SMALL (NEGATIVE); COLOR,URINE YELLOW (YELLOW); GLUCOSE,URINE NEGATIVE (NEGATIVE); KETONES,URINE TRACE (NEGATIVE); LEUKOCYTE ESTERASE,URINE NEGATIVE (NEGATIVE); NITRITE,URINE NEGATIVE (NEGATIVE); OCCULT BLOOD,URINE SMALL (NEGATIVE); PH,URINE 6.5 (5.0-9.0); PROTEIN,URINE 30 (NEGATIVE); UROBILINOGEN,URINE >=8.0 mg/dL (0.2-1.0)
[2023-01-14 18:47] LABS: AMPHETAMINES,URINE NEGATIVE (NEGATIVE); BARBITURATES,URINE NEGATIVE (NEGATIVE); BENZODIAZEPINE,URINE NEGATIVE (NEGATIVE); MDMA (ECSTASY), URINE NEGATIVE (NEGATIVE); METHADONE,URINE NEGATIVE (NEGATIVE); METHAMPHETAMINES,URINE NEGATIVE (NEGATIVE); OPIATES,URINE NEGATIVE (NEGATIVE); OXYCODONE,URINE NEGATIVE (NEGATIVE); PHENCYCLIDINE,URINE NEGATIVE (NEGATIVE); TCA,URINE NEGATIVE (NEGATIVE)
[2023-01-14] MEDS ORDERED: Ibuprofen 800 MG Tab PO ONE (18:48)
[2023-01-14 18:54] LABS: BACTERIA,URINE FEW /HPF (0-FEW/HPF); EPITHELIAL CELLS,URINE OCCASIONAL /HPF (NOT SEEN); FINE GRANULAR CASTS,URINE RARE /LPF (NOT SEEN); MUCUS,URINE OCCASIONAL /LPF (NOT SEEN); WBC,URINE NOT SEEN /HPF (0-5/HPF)
[2023-01-14] MEDS ORDERED: Iopamidol 755 Mg/ML 100 ML Bottle IVPUSH ONE (18:54)
[2023-01-14] MEDS ORDERED: Piperacillin/Tazobactam 4.5 GM in Sodium Chloride 0.9% 100 ML IV ONE (20:30)
[2023-01-14] MEDS ORDERED: Lactulose Soln 10 GM/15 ML 30 ML UD Cup PO ONE (20:30)
[2023-01-14 21:22] VITALS: BP 117/43; PULSE 111
== END 2023-01-14 21:11 ==
LOC: DL.ED 17:27
DX: E87.1 Hypo-osmolality and hyponatremia (principal); R79.1 Abnormal coagulation profile; E72.20 Disorder of urea cycle metabolism, unspecified; E87.3 Alkalosis; A41.9 Sepsis, unspecified organism
CPT/HCPCS: 36415; 36600; 71045; 71260; 71275; 80053; 80143; 80179; 80305; 80307; 81001; 82140; 82150; 82550; 82803; 83605; 83690; 83735; 83880; 84145; 84443; 84484; 85025; 85379; 85610; 85730; 86140; 87040; 87635; 87804; 93005; 93010; 96361; 96365; 96366; 96375; 99285; A9270; C1758; J2543; J3370; J3490; J7030; J7040; Q9967; U0002

== ENCOUNTER 2023-01-25 00:55 | Emergency (ER) | payer MEDICAID ==
[2023-01-25] MEDS ORDERED: Baclofen 10 MG Tab PO ONE ×2 (00:56→02:51)
[2023-01-25] MEDS ORDERED: Ibuprofen 800 MG Tab PO ONE (00:56)
[2023-01-25] MEDS ORDERED: Sodium Chloride 0.9% 10 ML Syringe FLUSH PRN (01:03)
[2023-01-25] MEDS ORDERED: Ondansetron 4 MG/2 ML SDV IVPUSH ONE (01:05)
[2023-01-25 01:29] VITALS: BP 132/67; PULSE 91
[2023-01-25 01:30] LABS: BASOPHILS PERCENT AUTO 0.5 % (0.0-1.0); EOSINOPHILS PERCENT AUTO 0.4 % (1.0-3.0); HEMATOCRIT 23.3 % (40.0-54.0); HEMOGLOBIN 7.7 g/dL (14.0-18.0); LYMPHOCYTES PERCENT AUTO 19.1 % (20.5-50.1); MEAN CORPUSCULAR VOLUME 84.7 fL (80-100); PLATELET COUNT,PLT 96 10^3/uL (150-450); RED BLOOD CELL COUNT 2.75 10^6/uL (4.6-6.2); WHITE BLOOD CELL COUNT,WBC 8.4 10^3/uL (5.0-10.0)
[2023-01-25 01:50] LABS: ALBUMIN 1.8 g/dL (3.4-5.0); ANION GAP 10.7 mEq/L (7-13); BILIRUBIN TOTAL 6.8 mg/dL (0.2-1.0); BUN/CREATININE RATIO 8.4 (No establ ref range); C-REACTIVE PROTEIN 2.3 mg/dL (0.0-0.9); CALCIUM 7.3 mg/dL (8.5-10.1); CREATININE 0.95 mg/dL (0.70-1.30); EST CRCL DRUG DOSING (CG) 134.17 mL/min; POTASSIUM,K 3.7 mmol/L (3.5-5.1); PROTEIN TOTAL,TP 6.4 g/dL (6.4-8.2)
[2023-01-25 01:53] LABS: A/G RATIO 0.39
[2023-01-25] MEDS ORDERED: Ketorolac 30 MG/ML SDV IVPUSH ONE (02:52)
[2023-01-25] MEDS ORDERED: Baclofen 10 MG Tab ONE (03:19)
[2023-01-25] MEDS ORDERED: Ibuprofen 800 MG Tab ONE (03:20)
== END 2023-01-25 03:36 | disposition home or self-care (01) ==
LOC: DL.ED 00:55
DX: K70.31 Alcoholic cirrhosis of liver with ascites (principal); L03.115 Cellulitis of right lower limb; R59.0 Localized enlarged lymph nodes; Z86.16 Personal history of COVID-19; Z79.899 Other long term (current) drug therapy
CPT/HCPCS: 36415; 80053; 80307; 83605; 85025; 86140; 87040; 96374; 96375; 99284; 99284-25; A9270-GY; J1885; J2405; J3490

== ENCOUNTER 2023-02-19 12:09 | Emergency (ER) | payer MEDICAID ==
[2023-02-19 12:35] LABS: BASOPHILS PERCENT AUTO 0.1 % (0.0-1.0); EOSINOPHILS PERCENT AUTO 0.6 % (1.0-3.0); LYMPHOCYTES PERCENT AUTO 6.9 % (20.5-50.1); MEAN CORPUSCULAR HEMOGLOBIN 33.3 pg (27.0-34.0); MEAN CORPUSCULAR HGB CONC 32.8 g/dL (33.0-35.0); MEAN CORPUSCULAR VOLUME 101.6 fL (80-100); MONOCYTES PERCENT AUTO 5.8 % (2-8); NEUTROPHILS PERCENT AUTO 86.6 % (42.2-75.2); PLATELET COUNT,PLT 89 10^3/uL (150-450); RED BLOOD CELL COUNT 1.86 10^6/uL (4.6-6.2); WHITE BLOOD CELL COUNT,WBC 9.2 10^3/uL (5.0-10.0)
[2023-02-19 12:37] LABS: HEMATOCRIT 18.9 % (40.0-54.0); HEMOGLOBIN 6.2 g/dL (14.0-18.0)
[2023-02-19] MEDS: Sodium Chloride 0.9% 10 ML Syringe FLUSH PRN ×2 (12:39→12:57)
[2023-02-19] MEDS ORDERED: Sodium Chloride 0.9% 1,000 ML IV ONE ×3 (12:41→14:59)
[2023-02-19 13:02] LABS: INR 1.5 (0.9-1.2); PROTHROMBIN TIME 15.4 SEC (9.0-12.0)
[2023-02-19 13:07] LABS: A/G RATIO 0.4; ALBUMIN 1.8 g/dL (3.4-5.0); BILIRUBIN TOTAL 5.5 mg/dL (0.2-1.0); BUN/CREATININE RATIO 9.9 (No establ ref range); C-REACTIVE PROTEIN 1.16 ng/dL (<=0.30); CALCIUM 7.3 mg/dL (8.5-10.1); CREATININE 1.72 mg/dL (0.70-1.30); EST CRCL DRUG DOSING (CG) 74.11 mL/min; MAGNESIUM 1.6 mg/dL (1.8-2.4); PHOSPHORUS 3.2 mg/dL (2.6-4.7); PROTEIN TOTAL,TP 6.3 g/dL (6.4-8.2)
[2023-02-19] MEDS ORDERED: Potassium Chloride 10 MEQ Tab.ER PO ONE (13:11)
[2023-02-19] MEDS ORDERED: Tranexamic Acid 1,000 MG in Sodium Chloride 0.9% 100 ML IV ONE (13:12)
[2023-02-19 13:15] LABS: LACTIC ACID 2.8 mmol/L (0.4-2.0)
[2023-02-19 13:24] LABS: PERCENT FE SATURATION 46.2 % (20.0-50.0)
[2023-02-19 13:58] LABS: APPEARANCE,URINE CLOUDY (CLEAR); BILIRUBIN,URINE LARGE (NEGATIVE); COLOR,URINE AMBER (YELLOW); GLUCOSE,URINE 100 (NEGATIVE); KETONES,URINE 15 (NEGATIVE); LEUKOCYTE ESTERASE,URINE NEGATIVE (NEGATIVE); NITRITE,URINE NEGATIVE (NEGATIVE); OCCULT BLOOD,URINE MODERATE (NEGATIVE); PH,URINE 5.5 (5.0-9.0); PROTEIN,URINE 100 (NEGATIVE)
[2023-02-19 14:01] LABS: AMPHETAMINES,URINE NEGATIVE (NEGATIVE); BARBITURATES,URINE NEGATIVE (NEGATIVE); BENZODIAZEPINE,URINE NEGATIVE (NEGATIVE); MDMA (ECSTASY), URINE NEGATIVE (NEGATIVE); METHADONE,URINE NEGATIVE (NEGATIVE); METHAMPHETAMINES,URINE POSITIVE (NEGATIVE); OPIATES,URINE NEGATIVE (NEGATIVE); OXYCODONE,URINE NEGATIVE (NEGATIVE); PHENCYCLIDINE,URINE NEGATIVE (NEGATIVE); TCA,URINE NEGATIVE (NEGATIVE)
[2023-02-19 14:10] LABS: AMORPHOUS SEDIMENT,URINE MODERATE /HPF (NOT SEEN); MUCUS,URINE MODERATE /LPF (NOT SEEN)
[2023-02-19 14:11] LABS: BACTERIA,URINE MODERATE /HPF (0-FEW/HPF)
[2023-02-19 14:19] LABS: CALCIUM OXALATE CRYSTALS,URINE MANY /HPF (NOT SEEN)
[2023-02-19 14:20] LABS: GRANULAR CASTS,URINE MODERATE
[2023-02-19 14:24] LABS: RBC,URINE 0-5 /HPF (0-5)
[2023-02-19 14:25] LABS: EPITHELIAL CELLS,URINE MODERATE /HPF (NOT SEEN); FINE GRANULAR CASTS,URINE FEW /LPF (NOT SEEN)
[2023-02-19 15:51] VITALS: BP 112/84; PULSE 104
== END 2023-02-19 16:19 ==
LOC: DL.ED 12:09
DX: N17.9 Acute kidney failure, unspecified (principal); K92.2 Gastrointestinal hemorrhage, unspecified; M62.82 Rhabdomyolysis; Z86.16 Personal history of COVID-19
CPT/HCPCS: 36415; 36430; 80053; 80305-QW; 80307; 81001; 82272; 82550; 82728; 83540; 83550; 83605; 83735; 84100; 85025; 85610; 86140; 86850; 86900; 86901; 86920; 86922; 96361; 96374; 99285; 99285-25; A9270-GY; J3490; J7030; P9016

== ENCOUNTER 2023-02-24 14:13 | Observation (INO) | payer MEDICAID ==
[2023-02-24] MEDS ORDERED: Acetaminophen 325 MG Tab PO PRN (16:43)
[2023-02-24] MEDS ORDERED: Ondansetron 4 MG/2 ML SDV IVPUSH PRN (16:43)
[2023-02-24] MEDS ORDERED: Albuterol/Ipratropium 3.0-0.5 MG/3 ML Neb Soln NEB PRN (16:43)
[2023-02-24] MEDS ORDERED: Acetaminophen/oxyCODONE 325-5 MG Tab PO PRN (16:43)
[2023-02-24] MEDS ORDERED: Sodium Chloride 0.9% 10 ML Syringe FLUSH PRN (16:43)
[2023-02-24] MEDS ORDERED: ALBUMIN HUMAN IV SCH (16:45)
[2023-02-24] MEDS ORDERED: Phytonadione 10 MG in Sodium Chloride 0.9% 50 ML IV ONE (16:47)
[2023-02-24] MEDS ORDERED: Lidocaine 1% 5 ML VIAL INJECT STA (16:53)
[2023-02-24] MEDS: HYDROmorphone 0.5 MG/0.5 ML Syringe IVPUSH PRN ×2 (17:08→17:22)
[2023-02-24 17:18] LABS: INR 1.4 (0.9-1.2); PROTHROMBIN TIME 14.2 SEC (9.0-12.0)
[2023-02-24] MEDS ORDERED: cefTRIAXone 1 GM Vial IVPUSH STA (17:31)
[2023-02-24 17:33] LABS: PTT,PARTIAL THROMBOPLSTIN TIME 28.5 SEC (22.0-34.0)
[2023-02-24] MEDS: ALBUMIN HUMAN IV SCH ×2 (17:54→23:06)
[2023-02-24] MEDS: Furosemide 100 MG in Sodium Chloride 0.9% 90 ML IV SCH (19:24)
[2023-02-24] MEDS ORDERED: diphenhydrAMINE 50 MG/ML SDV IVPUSH PRN (20:20)
[2023-02-24] MEDS ORDERED: diphenhydrAMINE/Zinc Acetate 2% Crm 28.4 GM Tube TOP PRN (20:21)
[2023-02-24] MEDS: Sodium Chloride 0.9% 10 ML Syringe FLUSH SCH (20:22)
[2023-02-25] MEDS: traZODone 50 MG Tab PO PRN ×2 (01:14→21:41)
[2023-02-25] MEDS ORDERED: Albumin 25% 12.5 GM in Premix Bag 1 BAG IV SCH (05:00)
[2023-02-25 06:51] LABS: A/G RATIO 0.5; BASOPHILS PERCENT AUTO 0.3 % (0.0-1.0); BILIRUBIN TOTAL 4.6 mg/dL (0.2-1.0); BUN/CREATININE RATIO 14.8 (No establ ref range); CREATININE 0.88 mg/dL (0.70-1.30); EOSINOPHILS PERCENT AUTO 7.4 % (1.0-3.0); EST CRCL DRUG DOSING (CG) 144.84 mL/min; HEMATOCRIT 21.1 % (40.0-54.0); LYMPHOCYTES PERCENT AUTO 33.2 % (20.5-50.1); MAGNESIUM 1.6 mg/dL (1.8-2.4); MEAN CORPUSCULAR HEMOGLOBIN 31.9 pg (27.0-34.0); MEAN CORPUSCULAR HGB CONC 32.2 g/dL (33.0-35.0); MEAN CORPUSCULAR VOLUME 99.1 fL (80-100); MONOCYTES PERCENT AUTO 17.9 % (2-8); NEUTROPHILS PERCENT AUTO 41.2 % (42.2-75.2); PLATELET COUNT,PLT 83 10^3/uL (150-450); RED BLOOD CELL COUNT 2.13 10^6/uL (4.6-6.2); WHITE BLOOD CELL COUNT,WBC 3.9 10^3/uL (5.0-10.0)
[2023-02-25 06:53] LABS: HEMOGLOBIN 6.8 g/dL (14.0-18.0)
[2023-02-25 06:56] LABS: INR 1.4 (0.9-1.2); PROTHROMBIN TIME 14.3 SEC (9.0-12.0); PTT,PARTIAL THROMBOPLSTIN TIME 28.7 SEC (22.0-34.0)
[2023-02-25] MEDS ORDERED: Magnesium Sulfate/Water 2 GM in Premix Bag 1 BAG IV ONE (08:15)
[2023-02-25] MEDS ORDERED: Enoxaparin 40 MG/0.4 ML Syringe SUBCUT SCH (09:00)
[2023-02-25] MEDS: Sodium Chloride 0.9% 10 ML Syringe FLUSH SCH ×2 (10:06→21:45)
[2023-02-25] MEDS ORDERED: Hydrocortisone 1% Crm 30 GM Tube TOP PRN (10:44)
[2023-02-25] MEDS: Albumin Human 25 GM in Premix Bag 1 BAG IV SCH ×3 (16:49→23:04)
[2023-02-25] MEDS: cefTRIAXone 1 GM Vial IVPUSH SCH (16:54)
[2023-02-25] MEDS: Phytonadione 5 MG in Sodium Chloride 0.9% 50 ML IV SCH (17:20)
[2023-02-25] MEDS ORDERED: Magnesium Sulfate/Water 50 ML ONE (18:05)
[2023-02-25] MEDS: Furosemide 100 MG in Sodium Chloride 0.9% 90 ML IV SCH (21:37)
[2023-02-25] MEDS: Spironolactone 25 MG Tab PO SCH (21:41)
[2023-02-25] MEDS: Magnesium Oxide 400 MG Tab PO SCH (21:41)
[2023-02-26] MEDS: Albumin Human 25 GM in Premix Bag 1 BAG IV SCH ×2 (05:17→10:13)
[2023-02-26 08:01] LABS: BASOPHILS PERCENT AUTO 0.3 % (0.0-1.0); EOSINOPHILS PERCENT AUTO 5.4 % (1.0-3.0); HEMATOCRIT 23.7 % (40.0-54.0); HEMOGLOBIN 7.8 g/dL (14.0-18.0); LYMPHOCYTES PERCENT AUTO 25.6 % (20.5-50.1); MEAN CORPUSCULAR HEMOGLOBIN 31.6 pg (27.0-34.0); MEAN CORPUSCULAR HGB CONC 32.9 g/dL (33.0-35.0); MONOCYTES PERCENT AUTO 19.7 % (2-8); PLATELET COUNT,PLT 63 10^3/uL (150-450); RED BLOOD CELL COUNT 2.47 10^6/uL (4.6-6.2); WHITE BLOOD CELL COUNT,WBC 3.9 10^3/uL (5.0-10.0)
[2023-02-26 08:22] LABS: ALBUMIN 2.6 g/dL (3.4-5.0); ANION GAP 10.9 mEq/L (7-13); BILIRUBIN TOTAL 5.2 mg/dL (0.2-1.0); BUN/CREATININE RATIO 13.3 (No establ ref range); CALCIUM 8.4 mg/dL (8.5-10.1); CREATININE 1.05 mg/dL (0.70-1.30); EST CRCL DRUG DOSING (CG) 121.39 mL/min; POTASSIUM,K 3.9 mmol/L (3.5-5.1); PROTEIN TOTAL,TP 6.3 g/dL (6.4-8.2)
[2023-02-26 08:23] LABS: A/G RATIO 0.7
[2023-02-26] MEDS ORDERED: Pantoprazole 40 MG Tab.CR PO SCH (09:00)
[2023-02-26] MEDS ORDERED: Folic Acid 1 MG Tab PO SCH (09:00)
[2023-02-26] MEDS ORDERED: Thiamine 100 MG Tab PO SCH (09:00)
[2023-02-26] MEDS ORDERED: Lisinopril 10 MG Tab PO SCH (09:00)
[2023-02-26] MEDS: Spironolactone 25 MG Tab PO SCH (09:58)
[2023-02-26] MEDS: Magnesium Oxide 400 MG Tab PO SCH (09:59)
[2023-02-26] MEDS: cefTRIAXone 1 GM Vial IVPUSH SCH (10:33)
[2023-02-26] MEDS: Phytonadione 5 MG in Sodium Chloride 0.9% 50 ML IV SCH (10:36)
[2023-02-26] MEDS: Sodium Chloride 0.9% 10 ML Syringe FLUSH SCH (10:37)
[2023-02-26 18:05] VITALS: BP 125/55; PULSE 99
== END 2023-02-26 18:00 | disposition home or self-care (01) ==
LOC: DL.ED 14:13 → DL.MS 15:36 → UNDOADMOB 15:36 → DL.ED 16:13
PROVIDERS: ADMIT Internal Medicine; ATTEND Internal Medicine
DX: K70.31 Alcoholic cirrhosis of liver with ascites (principal); D50.9 Iron deficiency anemia, unspecified; K21.9 Gastro-esophageal reflux disease without esophagitis; D69.6 Thrombocytopenia, unspecified; D68.9 Coagulation defect, unspecified; E87.1 Hypo-osmolality and hyponatremia; E83.42 Hypomagnesemia; E88.09 Other disorders of plasma-protein metabolism, not elsewhere classified; E80.6 Other disorders of bilirubin metabolism; R74.8 Abnormal levels of other serum enzymes; Z79.899 Other long term (current) drug therapy; Z79.2 Long term (current) use of antibiotics
CPT/HCPCS: 36415; 36430; 71045; 80053; 83735; 85025; 85610; 85730; 86850; 86900; 86901; 86920; 86922; 96365; 96366; 96367; 96368; 96375; 96376; 99223; 99233; 99238; A9270-GY; G0378; J0696; J1170; J1200; J1940; J3430; J3475; J3490; P9016; P9047

== ENCOUNTER 2023-03-07 06:43 | Inpatient (IN) | payer MEDICAID ==
[2023-03-07] MEDS ORDERED: Sodium Chloride 0.9% 10 ML Syringe FLUSH PRN (06:56)
[2023-03-07] MEDS ORDERED: Sodium Chloride 0.9% 1,000 ML IV ONE (06:57)
[2023-03-07] MEDS ORDERED: Ondansetron 4 MG/2 ML SDV IV ONE (06:57)
[2023-03-07 07:03] LABS: HEMATOCRIT 24.7 % (40.0-54.0); HEMOGLOBIN 8.1 g/dL (14.0-18.0); MEAN CORPUSCULAR HEMOGLOBIN 31.9 pg (27.0-34.0); MEAN CORPUSCULAR HGB CONC 32.8 g/dL (33.0-35.0); MEAN CORPUSCULAR VOLUME 97.2 fL (80-100); PLATELET COUNT,PLT 66 10^3/uL (150-450); RED BLOOD CELL COUNT 2.54 10^6/uL (4.6-6.2); WHITE BLOOD CELL COUNT,WBC 3.3 10^3/uL (5.0-10.0)
[2023-03-07 07:05] LABS: BASOPHILS PERCENT AUTO 0.9 % (0.0-1.0); EOSINOPHILS PERCENT AUTO 11.3 % (1.0-3.0); LYMPHOCYTES PERCENT AUTO 32.5 % (20.5-50.1); MONOCYTES PERCENT AUTO 10.4 % (2-8); NEUTROPHILS PERCENT AUTO 44.9 % (42.2-75.2)
[2023-03-07 07:14] LABS: EOSINOPHILS PERCENT MAN 13 % (1-3); LYMPHOCYTES PERCENT MAN 27 % (20-50); MONOCYTES PERCENT MAN 6 % (2-8); SEG NEUTROPHILS PERCENT MAN 54 % (42-75)
[2023-03-07 07:24] LABS: A/G RATIO 0.56; ALBUMIN 2.4 g/dL (3.4-5.0); ANION GAP 10.5 mEq/L (7-13); BILIRUBIN TOTAL 4.1 mg/dL (0.2-1.0); BUN/CREATININE RATIO 12.9 (No establ ref range); CALCIUM 7.8 mg/dL (8.5-10.1); CREATININE 0.7 mg/dL (0.70-1.30); EST CRCL DRUG DOSING (CG) 158.59 mL/min; POTASSIUM,K 3.5 mmol/L (3.5-5.1); PROTEIN TOTAL,TP 6.7 g/dL (6.4-8.2)
[2023-03-07] MEDS ORDERED: Lactulose Soln 10 GM/15 ML 30 ML UD Cup PO ONE (07:26)
[2023-03-07 07:39] LABS: INR 1.6 (0.9-1.2); PTT,PARTIAL THROMBOPLSTIN TIME 30.8 SEC (22.0-34.0)
[2023-03-07 08:53] LABS: APPEARANCE,URINE CLEAR (CLEAR); BILIRUBIN,URINE NEGATIVE (NEGATIVE); COLOR,URINE DARK YELLOW (YELLOW); GLUCOSE,URINE NEGATIVE (NEGATIVE); KETONES,URINE NEGATIVE (NEGATIVE); LEUKOCYTE ESTERASE,URINE NEGATIVE (NEGATIVE); NITRITE,URINE NEGATIVE (NEGATIVE); OCCULT BLOOD,URINE NEGATIVE (NEGATIVE); PH,URINE 7.5 (5.0-9.0); PROTEIN,URINE NEGATIVE (NEGATIVE)
[2023-03-07 08:58] LABS: AMPHETAMINES,URINE NEGATIVE (NEGATIVE); BARBITURATES,URINE NEGATIVE (NEGATIVE); BENZODIAZEPINE,URINE NEGATIVE (NEGATIVE); MDMA (ECSTASY), URINE NEGATIVE (NEGATIVE); METHADONE,URINE NEGATIVE (NEGATIVE); METHAMPHETAMINES,URINE POSITIVE (NEGATIVE); OPIATES,URINE NEGATIVE (NEGATIVE); OXYCODONE,URINE NEGATIVE (NEGATIVE); PHENCYCLIDINE,URINE NEGATIVE (NEGATIVE); TCA,URINE NEGATIVE (NEGATIVE)
[2023-03-07] MEDS ORDERED: Lactulose Soln 10 GM/15 ML 30 ML UD Cup PO SCH (09:00)
[2023-03-07] MEDS ORDERED: Polyethylene Glycol 3350 Powder 17 GM Packet PO PRN (11:01)
[2023-03-07] MEDS ORDERED: Magnesium Hydroxide 400 MG/5 ML Susp 30 ML Cup PO PRN (11:01)
[2023-03-07] MEDS ORDERED: Docusate Sodium 100 MG Cap PO PRN (11:01)
[2023-03-07] MEDS ORDERED: Ondansetron 4 MG/2 ML SDV IVPUSH PRN (11:01)
[2023-03-07] MEDS ORDERED: Pantoprazole 40 MG Vial IVPUSH ONE ×2 (11:01→13:45)
[2023-03-07] MEDS ORDERED: Bisacodyl 5 MG Tab PO PRN (11:01)
[2023-03-07] MEDS ORDERED: Melatonin 3 MG Tab PO PRN (11:08)
[2023-03-07] MEDS: Ciprofloxacin 500 MG Tab PO SCH (13:48)
[2023-03-07] MEDS: Lactulose Soln 10 GM/15 ML 30 ML UD Cup PO SCH ×3 (13:49→20:20)
[2023-03-07] MEDS ORDERED: FLU (Fluarix Quad) QS2023-24(6MOS UP)/PF 60 MCG/0.5 ML Syringe IM ONE (14:15)
[2023-03-07] MEDS: Magnesium Oxide 400 MG Tab PO SCH (20:20)
[2023-03-07] MEDS: Spironolactone 25 MG Tab PO SCH (20:20)
[2023-03-08 05:58] LABS: BASOPHILS PERCENT AUTO 0.5 % (0.0-1.0); HEMATOCRIT 25.1 % (40.0-54.0); HEMOGLOBIN 8.1 g/dL (14.0-18.0); LYMPHOCYTES PERCENT AUTO 24.1 % (20.5-50.1); MEAN CORPUSCULAR HGB CONC 32.3 g/dL (33.0-35.0); MEAN CORPUSCULAR VOLUME 99.2 fL (80-100); MONOCYTES PERCENT AUTO 11.5 % (2-8); NEUTROPHILS PERCENT AUTO 50.9 % (42.2-75.2); PLATELET COUNT,PLT 64 10^3/uL (150-450); RED BLOOD CELL COUNT 2.53 10^6/uL (4.6-6.2); WHITE BLOOD CELL COUNT,WBC 4.1 10^3/uL (5.0-10.0)
[2023-03-08 06:12] LABS: A/G RATIO 0.53; ALBUMIN 2.3 g/dL (3.4-5.0); ANION GAP 11.6 mEq/L (7-13); BILIRUBIN TOTAL 5.3 mg/dL (0.2-1.0); BUN/CREATININE RATIO 7.7 (No establ ref range); CALCIUM 8.4 mg/dL (8.5-10.1); CREATININE 0.78 mg/dL (0.70-1.30); EST CRCL DRUG DOSING (CG) 163.41 mL/min; POTASSIUM,K 3.6 mmol/L (3.5-5.1); PROTEIN TOTAL,TP 6.6 g/dL (6.4-8.2)
[2023-03-08 06:25] LABS: INR 1.6 (0.9-1.2); PROTHROMBIN TIME 16.1 SEC (9.0-12.0)
[2023-03-08] MEDS ORDERED: Furosemide 40 MG Tab PO SCH (09:00)
[2023-03-08] MEDS ORDERED: Multivitamins with Iron/Calcium/Folic Acid/Minerals Tab PO SCH (09:00)
[2023-03-08] MEDS ORDERED: Pantoprazole 40 MG Tab.CR PO SCH (09:00)
[2023-03-08] MEDS ORDERED: Lisinopril 10 MG Tab PO SCH (09:00)
[2023-03-08] MEDS ORDERED: Folic Acid 1 MG Tab PO SCH (09:00)
[2023-03-08] MEDS: Magnesium Oxide 400 MG Tab PO SCH (09:04)
[2023-03-08] MEDS: Ciprofloxacin 500 MG Tab PO SCH (09:04)
[2023-03-08] MEDS: Lactulose Soln 10 GM/15 ML 30 ML UD Cup PO SCH (09:06)
[2023-03-08] MEDS: Spironolactone 25 MG Tab PO SCH (09:06)
[2023-03-08] MEDS ORDERED: FLU (Fluarix Quad) QS2023-24(6MOS UP)/PF 60 MCG/0.5 ML Syringe IM ONE (10:15)
[2023-03-08 11:19] VITALS: BP 132/68; PULSE 80
== END 2023-03-08 10:40 | disposition home or self-care (01) | DRG 442 ==
LOC: DL.ED 06:43 → DL.MS 08:02 → DL.ED 08:05
PROVIDERS: ADMIT Internal Medicine; ATTEND Internal Medicine
DX: K76.82 Hepatic encephalopathy (principal); D61.818 Other pancytopenia; D68.4 Acquired coagulation factor deficiency; D50.9 Iron deficiency anemia, unspecified; F10.10 Alcohol abuse, uncomplicated; S30.1XXA Contusion of abdominal wall, initial encounter; E86.0 Dehydration; K72.10 Chronic hepatic failure without coma; K70.30 Alcoholic cirrhosis of liver without ascites; M19.90 Unspecified osteoarthritis, unspecified site; Z68.29 Body mass index [BMI] 29.0-29.9, adult; Z90.49 Acquired absence of other specified parts of digestive tract; Z98.890 Other specified postprocedural states; I10 Essential (primary) hypertension; Z79.899 Other long term (current) drug therapy; Z86.16 Personal history of COVID-19
CPT/HCPCS: 36415; 80053; 80305-QW; 81003; 82140; 83690; 85025; 85610; 85730; 90686; 96361; 96374; 99223; 99239; 99285-25; A9270-GY; C9113; J2405; J3490; J7030

== ENCOUNTER 2023-03-20 22:37 | Emergency (ER) | payer MEDICAID ==
[2023-03-20] MEDS: Sodium Chloride 0.9% 10 ML Syringe FLUSH PRN ×2 (22:50→23:01)
[2023-03-20 22:52] LABS: HEMATOCRIT 22.1 % (40.0-54.0); HEMOGLOBIN 7.2 g/dL (14.0-18.0); MEAN CORPUSCULAR HEMOGLOBIN 32.1 pg (27.0-34.0); MEAN CORPUSCULAR HGB CONC 32.6 g/dL (33.0-35.0); MEAN CORPUSCULAR VOLUME 98.7 fL (80-100); PLATELET COUNT,PLT 53 10^3/uL (150-450); RED BLOOD CELL COUNT 2.24 10^6/uL (4.6-6.2); WHITE BLOOD CELL COUNT,WBC 6.9 10^3/uL (5.0-10.0)
[2023-03-20] MEDS ORDERED: Ketorolac 30 MG/ML SDV IVPUSH ONE (22:53)
[2023-03-20] MEDS ORDERED: Sodium Chloride 0.9% 1,000 ML IV ONE (22:53)
[2023-03-20 23:07] LABS: INR 1.5 (0.9-1.2); PROTHROMBIN TIME 15.4 SEC (9.0-12.0)
[2023-03-20 23:11] LABS: ALBUMIN 2.6 g/dL (3.4-5.0); ANION GAP 15.2 mEq/L (7-13); BILIRUBIN TOTAL 4.9 mg/dL (0.2-1.0); BUN/CREATININE RATIO 17.4 (No establ ref range); CALCIUM 7.9 mg/dL (8.5-10.1); CREATININE 0.86 mg/dL (0.70-1.30); EST CRCL DRUG DOSING (CG) 148.21 mL/min; POTASSIUM,K 3.2 mmol/L (3.5-5.1); PROTEIN TOTAL,TP 6.4 g/dL (6.4-8.2)
[2023-03-20 23:17] LABS: A/G RATIO 0.68
[2023-03-20 23:18] LABS: LACTIC ACID 2.2 mmol/L (0.4-2.0)
[2023-03-20 23:27] LABS: BASOPHILS PERCENT AUTO 0.1 % (0.0-1.0); EOSINOPHILS PERCENT AUTO 5.2 % (1.0-3.0); LYMPHOCYTES PERCENT AUTO 14.2 % (20.5-50.1); MONOCYTES PERCENT AUTO 13.4 % (2-8); NEUTROPHILS PERCENT AUTO 67.1 % (42.2-75.2)
[2023-03-20 23:31] LABS: EOSINOPHILS PERCENT MAN 7 % (1-3); LYMPHOCYTES PERCENT MAN 16 % (20-50); MONOCYTES PERCENT MAN 7 % (2-8); SEG NEUTROPHILS PERCENT MAN 70 % (42-75)
[2023-03-21] MEDS ORDERED: Levofloxacin 500 MG Tab PO ONE (00:04)
[2023-03-21 00:20] VITALS: BP 152/78; PULSE 100
== END 2023-03-21 00:20 | disposition home or self-care (01) ==
LOC: DL.ED 22:37
DX: J18.9 Pneumonia, unspecified organism (principal); I10 Essential (primary) hypertension; K21.9 Gastro-esophageal reflux disease without esophagitis; Z86.16 Personal history of COVID-19; Z79.899 Other long term (current) drug therapy
CPT/HCPCS: 36415; 71045; 80053; 80307; 83605; 85025; 85610; 86140; 87040; 96374; 99284; 99285-25; A9270-GY; J1885; J3490; J7030

== ENCOUNTER 2023-04-15 13:44 | Inpatient (IN) | payer MEDICAID ==
[2023-04-15] MEDS ORDERED: Sodium Chloride 0.9% 1,000 ML IV ONE ×3 (13:56→14:34)
[2023-04-15 14:09] LABS: BASOPHILS PERCENT AUTO 0.3 % (0.0-1.0); EOSINOPHILS PERCENT AUTO 5.5 % (1.0-3.0); HEMATOCRIT 25.3 % (40.0-54.0); HEMOGLOBIN 8.3 g/dL (14.0-18.0); LYMPHOCYTES PERCENT AUTO 25.6 % (20.5-50.1); MEAN CORPUSCULAR HEMOGLOBIN 32.2 pg (27.0-34.0); MEAN CORPUSCULAR HGB CONC 32.8 g/dL (33.0-35.0); MEAN CORPUSCULAR VOLUME 98.1 fL (80-100); MONOCYTES PERCENT AUTO 7.5 % (2-8); NEUTROPHILS PERCENT AUTO 61.1 % (42.2-75.2); PLATELET COUNT,PLT 71 10^3/uL (150-450); RED BLOOD CELL COUNT 2.58 10^6/uL (4.6-6.2); WHITE BLOOD CELL COUNT,WBC 7.4 10^3/uL (5.0-10.0)
[2023-04-15] MEDS ORDERED: Ondansetron 4 MG/2 ML SDV IVPUSH ONE (14:19)
[2023-04-15] MEDS: Sodium Chloride 0.9% 10 ML Syringe FLUSH PRN ×2 (14:24→19:53)
[2023-04-15] MEDS ORDERED: Acetaminophen 500 MG Tab PO ONE (14:30)
[2023-04-15 14:31] LABS: ALBUMIN 2.6 g/dL (3.4-5.0); ANION GAP 13.5 mEq/L (7-13); BILIRUBIN TOTAL 6.7 mg/dL (0.2-1.0); BUN/CREATININE RATIO 11.1 (No establ ref range); C-REACTIVE PROTEIN 1.25 ng/dL (<=0.50); CALCIUM 7.9 mg/dL (8.5-10.1); CREATININE 0.72 mg/dL (0.70-1.30); EST CRCL DRUG DOSING (CG) 177.03 mL/min; MAGNESIUM 1.5 mg/dL (1.8-2.4); POTASSIUM,K 4.5 mmol/L (3.5-5.1); PROTEIN TOTAL,TP 7.7 g/dL (6.4-8.2)
[2023-04-15 14:33] LABS: A/G RATIO 0.51
[2023-04-15 14:34] LABS: LACTIC ACID 5.9 mmol/L (0.4-2.0)
[2023-04-15] MEDS ORDERED: Vancomycin 2 GM in Sodium Chloride 0.9% 500 ML IV ONE (14:42)
[2023-04-15 14:43] LABS: INR 1.2 (0.9-1.2); PROTHROMBIN TIME 12.7 SEC (9.0-12.0); PTT,PARTIAL THROMBOPLSTIN TIME 27.6 SEC (22.0-34.0)
[2023-04-15 14:55] LABS: APPEARANCE,URINE CLEAR (CLEAR); BILIRUBIN,URINE MODERATE (NEGATIVE); COLOR,URINE DARK YELLOW (YELLOW); GLUCOSE,URINE NEGATIVE (NEGATIVE); KETONES,URINE NEGATIVE (NEGATIVE); LEUKOCYTE ESTERASE,URINE NEGATIVE (NEGATIVE); NITRITE,URINE NEGATIVE (NEGATIVE); OCCULT BLOOD,URINE MODERATE (NEGATIVE); PROTEIN,URINE 30 (NEGATIVE)
[2023-04-15 14:59] LABS: AMPHETAMINES,URINE NEGATIVE (NEGATIVE); BARBITURATES,URINE NEGATIVE (NEGATIVE); BENZODIAZEPINE,URINE NEGATIVE (NEGATIVE); MDMA (ECSTASY), URINE NEGATIVE (NEGATIVE); METHADONE,URINE NEGATIVE (NEGATIVE); METHAMPHETAMINES,URINE NEGATIVE (NEGATIVE); OPIATES,URINE NEGATIVE (NEGATIVE); OXYCODONE,URINE NEGATIVE (NEGATIVE); PHENCYCLIDINE,URINE NEGATIVE (NEGATIVE); TCA,URINE POSITIVE (NEGATIVE)
[2023-04-15 15:09] LABS: CORONAVIRUS COVID-19 NAA NEGATIVE (NEGATIVE); INFLUENZA A NAA NEGATIVE (NEGATIVE); INFLUENZA B NAA NEGATIVE (NEGATIVE); RESPIRATORY SYNCYTIAL VIR NAA NEGATIVE (NEGATIVE)
[2023-04-15 15:35] LABS: O2 DELIVERY DEVICE ROOM AIR
[2023-04-15 15:38] LABS: BASE EXCESS VENOUS -5.8 mmol/l ((-2)-(+3)); BICARBONATE,VENOUS 18 mmol/l (19-25); O2 SATURATION VENOUS 99.7 % (60-80); PCO2 VENOUS 28 mmHg (41-51); PH,VENOUS 7.42 (7.31-7.41); PO2 VENOUS 115 mmHg (35-42)
[2023-04-15 15:43] LABS: BACTERIA,URINE RARE /HPF (0-FEW/HPF); EPITHELIAL CELLS,URINE FEW /HPF (NOT SEEN); MUCUS,URINE MANY /LPF (NOT SEEN); WBC,URINE 0-5 /HPF (0-5/HPF)
[2023-04-15] MEDS ORDERED: Iopamidol 755 Mg/ML 100 ML Bottle IVPUSH ONE (15:48)
[2023-04-15] MEDS ORDERED: Lactulose Soln 10 GM/15 ML 30 ML UD Cup PO ONE (17:05)
[2023-04-15] MEDS ORDERED: Ondansetron 4 MG/2 ML SDV IVPUSH PRN (17:52)
[2023-04-15] MEDS ORDERED: Naloxone 2 MG/2 ML Syringe IVPUSH PRN (17:52)
[2023-04-15] MEDS ORDERED: Albuterol/Ipratropium 3.0-0.5 MG/3 ML Neb Soln NEB PRN (17:52)
[2023-04-15] MEDS ORDERED: Acetaminophen/oxyCODONE 325-5 MG Tab PO PRN (17:52)
[2023-04-15] MEDS ORDERED: Acetaminophen 325 MG Tab PO PRN (17:52)
[2023-04-15] MEDS ORDERED: HYDROmorphone 0.5 MG/0.5 ML Syringe IVPUSH PRN ×2 (17:52→18:08)
[2023-04-15] MEDS ORDERED: Phytonadione 10 MG in Sodium Chloride 0.9% 50 ML IV ONE (18:00)
[2023-04-15] MEDS ORDERED: Thiamine 100 MG in Sodium Chloride 0.9% 100 ML IV ONE (18:02)
[2023-04-15] MEDS ORDERED: MVI, Adult with Vitamin K 10 ML, Folic Acid 1 MG, Thiamine 100 MG in Lactated Ringers 1... IV ONE ×4 (18:02)
[2023-04-15] MEDS ORDERED: Pantoprazole 40 MG Vial IVPUSH ONE (18:07)
[2023-04-15 18:12] LABS: C-REACTIVE PROTEIN 1.05 ng/dL (<=0.50)
[2023-04-15 18:26] LABS: HEMOGLOBIN A1C 3.9 % (<5.7)
[2023-04-15] MEDS ORDERED: Magnesium Sulfate/Water 2 GM in Premix Bag 1 BAG IV ONE ×2 (19:00→22:00)
[2023-04-15] MEDS: Cholestyramine/Sucrose Powder 4 GM Packet PO SCH ×2 (19:47→21:27)
[2023-04-15] MEDS: Albumin Human 25 GM in Premix Bag 1 BAG IV SCH (19:49)
[2023-04-15] MEDS: traMADol 50 MG Tab PO PRN (20:06)
[2023-04-15] MEDS: Bacitracin/Neomycin/Polymyxin B Oint 28.4 GM Tube TOP SCH (20:34)
[2023-04-15] MEDS ORDERED: Midodrine 5 MG Tab PO PRN (21:00)
[2023-04-15] MEDS: Furosemide 100 MG in Sodium Chloride 0.9% 90 ML IV SCH (21:00)
[2023-04-15 21:16] LABS: CORONAVIRUS COVID-19 NAA NEGATIVE (NEGATIVE); INFLUENZA A NAA NEGATIVE (NEGATIVE); INFLUENZA B NAA NEGATIVE (NEGATIVE); RESPIRATORY SYNCYTIAL VIR NAA NEGATIVE (NEGATIVE)
[2023-04-15] MEDS: Spironolactone 25 MG Tab PO SCH (21:33)
[2023-04-15] MEDS ORDERED: Benzocaine/Cetylpyridinium/Menthol Lozenge MUCMEM PRN (21:50)
[2023-04-15] MEDS ORDERED: Acetaminophen/Butalbital/Caffeine 325-50-40 MG Tab PO PRN (21:51)
[2023-04-15] MEDS ORDERED: guaiFENesin/Dextromethorphan 100-10 MG/5 ML Soln 5 ML Cup PO PRN (21:52)
[2023-04-15] MEDS ORDERED: Benzonatate 100 MG Cap PO PRN (21:52)
[2023-04-15] MEDS ORDERED: Metoprolol Tartrate 5 MG/5 ML SDV IVPUSH PRN (21:57)
[2023-04-15] MEDS ORDERED: Oxymetazoline 0.05% Nasal Spray 30 ML Bottle NAS PRN (23:23)
[2023-04-15] MEDS: Lactulose Soln 10 GM/15 ML 30 ML UD Cup PO SCH (23:52)
[2023-04-15] MEDS: Ibuprofen 400 MG Tab PO PRN (23:52)
[2023-04-15] MEDS: Oxymetazoline 0.05% Nasal Spray 30 ML Bottle NAS PRN (23:53)
[2023-04-16] MEDS: Albumin Human 25 GM in Premix Bag 1 BAG IV SCH ×5 (00:03→23:43)
[2023-04-16] MEDS: Pantoprazole 40 MG Tab.CR PO SCH ×2 (05:54→15:48)
[2023-04-16] MEDS: Lactulose Soln 10 GM/15 ML 30 ML UD Cup PO SCH ×3 (05:54→21:55)
[2023-04-16 06:34] LABS: HEMATOCRIT 21.3 % (40.0-54.0); LYMPHOCYTES PERCENT AUTO 7.1 % (20.5-50.1); MEAN CORPUSCULAR HEMOGLOBIN 31.6 pg (27.0-34.0); MEAN CORPUSCULAR HGB CONC 31.9 g/dL (33.0-35.0); MEAN CORPUSCULAR VOLUME 99.1 fL (80-100); MONOCYTES PERCENT AUTO 6.8 % (2-8); NEUTROPHILS PERCENT AUTO 83.1 % (42.2-75.2); PLATELET COUNT,PLT 47 10^3/uL (150-450); RED BLOOD CELL COUNT 2.15 10^6/uL (4.6-6.2); WHITE BLOOD CELL COUNT,WBC 2.7 10^3/uL (5.0-10.0)
[2023-04-16 06:47] LABS: HEMOGLOBIN 6.8 g/dL (14.0-18.0)
[2023-04-16 07:58] LABS: A/G RATIO 0.68; ALBUMIN 2.5 g/dL (3.4-5.0); ANION GAP 10.3 mEq/L (7-13); BILIRUBIN TOTAL 5.8 mg/dL (0.2-1.0); BUN/CREATININE RATIO 11.4 (No establ ref range); C-REACTIVE PROTEIN 1.51 ng/dL (<=0.50); CALCIUM 7.3 mg/dL (8.5-10.1); CREATININE 0.88 mg/dL (0.70-1.30); EST CRCL DRUG DOSING (CG) 144.84 mL/min; MAGNESIUM 1.8 mg/dL (1.8-2.4); POTASSIUM,K 3.3 mmol/L (3.5-5.1); PROTEIN TOTAL,TP 6.2 g/dL (6.4-8.2)
[2023-04-16] MEDS: Ibuprofen 400 MG Tab PO PRN ×2 (08:26→20:08)
[2023-04-16] MEDS: Cholestyramine/Sucrose Powder 4 GM Packet PO SCH ×2 (08:26→21:55)
[2023-04-16] MEDS: Phytonadione 5 MG Tab PO SCH (08:27)
[2023-04-16] MEDS: Spironolactone 25 MG Tab PO SCH ×2 (08:28→20:10)
[2023-04-16] MEDS: guaiFENesin 600 MG Tab.ER PO SCH ×2 (08:30→20:09)
[2023-04-16] MEDS: Cholecalciferol (Vitamin D3) 25 MCG Tab PO SCH (08:30)
[2023-04-16] MEDS: Bacitracin/Neomycin/Polymyxin B Oint 28.4 GM Tube TOP SCH ×2 (08:31→20:10)
[2023-04-16] MEDS ORDERED: Potassium Chloride 10 MEQ Tab.ER PO ONE ×2 (09:04→17:30)
[2023-04-16] MEDS ORDERED: diphenhydrAMINE 50 MG/ML SDV IVPUSH ONE (09:34)
[2023-04-16] MEDS ORDERED: Dexamethasone 4 MG/ML SDV IVPUSH ONE (09:34)
[2023-04-16] MEDS ORDERED: Acetaminophen 325 MG Tab PO ONE (09:35)
[2023-04-16] MEDS ORDERED: Non-Formulary Medication 1 Each TOP PRN (16:47)
[2023-04-16] MEDS: Piperacillin/Tazobactam 3.375 GM in Sodium Chloride 0.9% 100 ML IV SCH (19:54)
[2023-04-16] MEDS: Folic Acid 1 MG Tab PO SCH (20:09)
[2023-04-16] MEDS: Multivitamin Tab PO SCH (20:09)
[2023-04-16] MEDS: Thiamine 100 MG Tab PO SCH (20:09)
[2023-04-16] MEDS: traMADol 50 MG Tab PO PRN (20:09)
[2023-04-16] MEDS: Oxymetazoline 0.05% Nasal Spray 30 ML Bottle NAS PRN (21:55)
[2023-04-16] MEDS: diphenhydrAMINE 50 MG/ML SDV IVPUSH PRN (23:38)
[2023-04-17] MEDS: Piperacillin/Tazobactam 3.375 GM in Sodium Chloride 0.9% 100 ML IV SCH ×4 (00:59→18:28)
[2023-04-17] MEDS: Furosemide 100 MG in Sodium Chloride 0.9% 90 ML IV SCH (03:25)
[2023-04-17 06:17] LABS: EOSINOPHILS PERCENT AUTO 0.3 % (1.0-3.0); HEMATOCRIT 21.2 % (40.0-54.0); LYMPHOCYTES PERCENT AUTO 7.6 % (20.5-50.1); MEAN CORPUSCULAR HEMOGLOBIN 32.3 pg (27.0-34.0); MEAN CORPUSCULAR VOLUME 97.7 fL (80-100); MONOCYTES PERCENT AUTO 7.9 % (2-8); NEUTROPHILS PERCENT AUTO 84.2 % (42.2-75.2); PLATELET COUNT,PLT 38 10^3/uL (150-450); RED BLOOD CELL COUNT 2.17 10^6/uL (4.6-6.2); WHITE BLOOD CELL COUNT,WBC 3.3 10^3/uL (5.0-10.0)
[2023-04-17] MEDS: Pantoprazole 40 MG Tab.CR PO SCH ×2 (06:17→15:49)
[2023-04-17] MEDS: Lactulose Soln 10 GM/15 ML 30 ML UD Cup PO SCH ×3 (06:17→22:00)
[2023-04-17 06:28] LABS: A/G RATIO 0.78; ALBUMIN 2.8 g/dL (3.4-5.0); BUN/CREATININE RATIO 13.1 (No establ ref range); C-REACTIVE PROTEIN 2.74 ng/dL (<=0.50); CALCIUM 7.7 mg/dL (8.5-10.1); CREATININE 0.84 mg/dL (0.70-1.30); EST CRCL DRUG DOSING (CG) 151.74 mL/min; MAGNESIUM 1.7 mg/dL (1.8-2.4); PROTEIN TOTAL,TP 6.4 g/dL (6.4-8.2)
[2023-04-17] MEDS ORDERED: Magnesium Sulfate/Water 2 GM in Premix Bag 1 BAG IV ONE (07:01)
[2023-04-17] MEDS: guaiFENesin 600 MG Tab.ER PO SCH ×2 (08:05→22:00)
[2023-04-17] MEDS: Spironolactone 25 MG Tab PO SCH ×2 (08:05→22:00)
[2023-04-17] MEDS: Cholecalciferol (Vitamin D3) 25 MCG Tab PO SCH (08:05)
[2023-04-17] MEDS: Phytonadione 5 MG Tab PO SCH (08:05)
[2023-04-17] MEDS: Ferrous Sulfate 325 MG Tab PO SCH (08:05)
[2023-04-17] MEDS: Gabapentin 100 MG Cap PO SCH ×2 (08:06→22:00)
[2023-04-17] MEDS: Cholestyramine/Sucrose Powder 4 GM Packet PO SCH ×2 (08:06→21:59)
[2023-04-17] MEDS: Bacitracin/Neomycin/Polymyxin B Oint 28.4 GM Tube TOP SCH ×2 (10:51→22:01)
[2023-04-17] MEDS: traMADol 50 MG Tab PO PRN (14:06)
[2023-04-17] MEDS: Folic Acid 1 MG Tab PO SCH (22:00)
[2023-04-17] MEDS: Multivitamin Tab PO SCH (22:00)
[2023-04-17] MEDS: Thiamine 100 MG Tab PO SCH (22:00)
[2023-04-17] MEDS: diphenhydrAMINE 50 MG/ML SDV IVPUSH PRN (22:09)
[2023-04-18] MEDS: Piperacillin/Tazobactam 3.375 GM in Sodium Chloride 0.9% 100 ML IV SCH ×4 (00:33→18:45)
[2023-04-18] MEDS: Pantoprazole 40 MG Tab.CR PO SCH ×2 (06:11→16:55)
[2023-04-18] MEDS: Lactulose Soln 10 GM/15 ML 30 ML UD Cup PO SCH ×3 (06:11→22:11)
[2023-04-18 06:34] LABS: BASOPHILS PERCENT AUTO 0.1 % (0.0-1.0); EOSINOPHILS PERCENT AUTO 0.7 % (1.0-3.0); HEMATOCRIT 23.9 % (40.0-54.0); HEMOGLOBIN 7.8 g/dL (14.0-18.0); LYMPHOCYTES PERCENT AUTO 11.5 % (20.5-50.1); MEAN CORPUSCULAR HEMOGLOBIN 31.8 pg (27.0-34.0); MEAN CORPUSCULAR HGB CONC 32.6 g/dL (33.0-35.0); MEAN CORPUSCULAR VOLUME 97.6 fL (80-100); MONOCYTES PERCENT AUTO 13.7 % (2-8); PLATELET COUNT,PLT 66 10^3/uL (150-450); RED BLOOD CELL COUNT 2.45 10^6/uL (4.6-6.2); WHITE BLOOD CELL COUNT,WBC 7.1 10^3/uL (5.0-10.0)
[2023-04-18 07:04] LABS: A/G RATIO 0.72; ALBUMIN 2.8 g/dL (3.4-5.0); ANION GAP 12.5 mEq/L (7-13); BILIRUBIN TOTAL 3.5 mg/dL (0.2-1.0); BUN/CREATININE RATIO 11.9 (No establ ref range); C-REACTIVE PROTEIN 2.16 ng/dL (<=0.50); CREATININE 0.84 mg/dL (0.70-1.30); EST CRCL DRUG DOSING (CG) 151.74 mL/min; MAGNESIUM 1.3 mg/dL (1.8-2.4); POTASSIUM,K 3.5 mmol/L (3.5-5.1); PROTEIN TOTAL,TP 6.7 g/dL (6.4-8.2)
[2023-04-18] MEDS ORDERED: Magnesium Sulfate/Water 2 GM in Premix Bag 1 BAG IV ONE ×3 (07:09→21:00)
[2023-04-18] MEDS: Magnesium Oxide 400 MG Tab PO SCH ×2 (07:45→17:00)
[2023-04-18] MEDS: Spironolactone 25 MG Tab PO SCH ×2 (08:03→22:09)
[2023-04-18] MEDS: Gabapentin 100 MG Cap PO SCH ×2 (08:03→22:11)
[2023-04-18] MEDS: guaiFENesin 600 MG Tab.ER PO SCH ×2 (08:03→22:11)
[2023-04-18] MEDS: Phytonadione 5 MG Tab PO SCH (08:04)
[2023-04-18] MEDS: Cholestyramine/Sucrose Powder 4 GM Packet PO SCH ×2 (08:04→22:11)
[2023-04-18] MEDS: Ferrous Sulfate 325 MG Tab PO SCH (08:04)
[2023-04-18] MEDS: Cholecalciferol (Vitamin D3) 25 MCG Tab PO SCH (08:04)
[2023-04-18] MEDS ORDERED: Furosemide 40 MG Tab PO SCH (09:00)
[2023-04-18] MEDS: Lisinopril 10 MG Tab PO SCH (09:41)
[2023-04-18] MEDS: Bacitracin/Neomycin/Polymyxin B Oint 28.4 GM Tube TOP SCH ×2 (09:42→22:26)
[2023-04-18] MEDS: Ibuprofen 400 MG Tab PO PRN (11:20)
[2023-04-18] MEDS: Thiamine 100 MG Tab PO SCH (22:10)
[2023-04-18] MEDS: Folic Acid 1 MG Tab PO SCH (22:11)
[2023-04-18] MEDS: Multivitamin Tab PO SCH (22:11)
[2023-04-18] MEDS: diphenhydrAMINE 50 MG/ML SDV IVPUSH PRN (22:22)
[2023-04-19] MEDS: Piperacillin/Tazobactam 3.375 GM in Sodium Chloride 0.9% 100 ML IV SCH ×2 (00:24→06:03)
[2023-04-19] MEDS: Lactulose Soln 10 GM/15 ML 30 ML UD Cup PO SCH ×3 (06:03→21:09)
[2023-04-19] MEDS: Pantoprazole 40 MG Tab.CR PO SCH ×2 (06:03→15:57)
[2023-04-19 06:29] LABS: EOSINOPHILS PERCENT AUTO 4.5 % (1.0-3.0); HEMATOCRIT 23.6 % (40.0-54.0); HEMOGLOBIN 7.5 g/dL (14.0-18.0); LYMPHOCYTES PERCENT AUTO 18.8 % (20.5-50.1); MEAN CORPUSCULAR HEMOGLOBIN 31.1 pg (27.0-34.0); MEAN CORPUSCULAR HGB CONC 31.8 g/dL (33.0-35.0); MEAN CORPUSCULAR VOLUME 97.9 fL (80-100); MONOCYTES PERCENT AUTO 22.9 % (2-8); NEUTROPHILS PERCENT AUTO 53.8 % (42.2-75.2); PLATELET COUNT,PLT 64 10^3/uL (150-450); RED BLOOD CELL COUNT 2.41 10^6/uL (4.6-6.2); WHITE BLOOD CELL COUNT,WBC 5.3 10^3/uL (5.0-10.0)
[2023-04-19 06:55] LABS: ALBUMIN 2.5 g/dL (3.4-5.0); ANION GAP 10.5 mEq/L (7-13); BILIRUBIN TOTAL 3.2 mg/dL (0.2-1.0); BUN/CREATININE RATIO 10.7 (No establ ref range); C-REACTIVE PROTEIN 2.05 ng/dL (<=0.50); CALCIUM 7.8 mg/dL (8.5-10.1); CREATININE 0.75 mg/dL (0.70-1.30); EST CRCL DRUG DOSING (CG) 169.95 mL/min; MAGNESIUM 1.8 mg/dL (1.8-2.4); POTASSIUM,K 3.5 mmol/L (3.5-5.1)
[2023-04-19 06:58] LABS: A/G RATIO 0.71
[2023-04-19] MEDS: Ferrous Sulfate 325 MG Tab PO SCH (08:17)
[2023-04-19] MEDS: guaiFENesin 600 MG Tab.ER PO SCH ×2 (08:17→21:10)
[2023-04-19] MEDS: Cholecalciferol (Vitamin D3) 25 MCG Tab PO SCH (08:17)
[2023-04-19] MEDS: Phytonadione 5 MG Tab PO SCH (08:17)
[2023-04-19] MEDS: Magnesium Oxide 400 MG Tab PO SCH ×2 (08:17→17:16)
[2023-04-19] MEDS: Lisinopril 10 MG Tab PO SCH (08:17)
[2023-04-19] MEDS: Spironolactone 25 MG Tab PO SCH ×2 (08:17→21:10)
[2023-04-19] MEDS: Gabapentin 100 MG Cap PO SCH ×2 (08:18→21:10)
[2023-04-19] MEDS: Furosemide 40 MG Tab PO SCH (08:18)
[2023-04-19] MEDS: Cholestyramine/Sucrose Powder 4 GM Packet PO SCH ×2 (08:18→21:09)
[2023-04-19] MEDS: Bacitracin/Neomycin/Polymyxin B Oint 28.4 GM Tube TOP SCH ×2 (08:22→21:10)
[2023-04-19] MEDS ORDERED: Potassium Chloride 10 MEQ Tab.ER PO ONE (08:32)
[2023-04-19] MEDS ORDERED: Magnesium Sulfate/Water 2 GM in Premix Bag 1 BAG IV ONE (08:32)
[2023-04-19] MEDS: Ibuprofen 400 MG Tab PO PRN (20:02)
[2023-04-19] MEDS: diphenhydrAMINE 50 MG/ML SDV IVPUSH PRN (20:03)
[2023-04-19] MEDS: Thiamine 100 MG Tab PO SCH (21:10)
[2023-04-19] MEDS: Folic Acid 1 MG Tab PO SCH (21:10)
[2023-04-19] MEDS: Multivitamin Tab PO SCH (21:10)
[2023-04-20] MEDS: Pantoprazole 40 MG Tab.CR PO SCH (05:34)
[2023-04-20] MEDS: Lactulose Soln 10 GM/15 ML 30 ML UD Cup PO SCH (05:34)
[2023-04-20] MEDS ORDERED: Potassium Chloride 10 MEQ Tab.ER PO SCH (08:00)
[2023-04-20] MEDS: Furosemide 40 MG Tab PO SCH (08:05)
[2023-04-20] MEDS: Ferrous Sulfate 325 MG Tab PO SCH (08:05)
[2023-04-20] MEDS: Cholecalciferol (Vitamin D3) 25 MCG Tab PO SCH (08:05)
[2023-04-20] MEDS: Cholestyramine/Sucrose Powder 4 GM Packet PO SCH (08:05)
[2023-04-20] MEDS: Magnesium Oxide 400 MG Tab PO SCH (08:06)
[2023-04-20] MEDS: Lisinopril 10 MG Tab PO SCH (08:06)
[2023-04-20] MEDS: Gabapentin 100 MG Cap PO SCH (08:06)
[2023-04-20] MEDS: guaiFENesin 600 MG Tab.ER PO SCH (08:06)
[2023-04-20] MEDS: Spironolactone 25 MG Tab PO SCH (08:07)
[2023-04-20] MEDS: Bacitracin/Neomycin/Polymyxin B Oint 28.4 GM Tube TOP SCH (08:08)
[2023-04-20 10:27] VITALS: BP 142/79; PULSE 86
== END 2023-04-20 10:30 | disposition home or self-care (01) | DRG 872 ==
LOC: DL.ED 13:44 → DL.MS 17:14
PROVIDERS: ADMIT Internal Medicine; ATTEND Internal Medicine
PROC: 4A043R1 Measurement of Venous Saturation, Peripheral, Percutaneous Approach (ICD-10-PCS; principal; 2023-04-15)
PROC: 3E033XZ Introduction of Vasopressor into Peripheral Vein, Percutaneous Approach (ICD-10-PCS; 2023-04-15)
DX: A40.0 Sepsis due to streptococcus, group A (principal); E44.0 Moderate protein-calorie malnutrition; E87.20 Acidosis, unspecified; E87.1 Hypo-osmolality and hyponatremia; A41.9 Sepsis, unspecified organism; L03.211 Cellulitis of face; L03.116 Cellulitis of left lower limb; L03.115 Cellulitis of right lower limb; E83.42 Hypomagnesemia; K72.10 Chronic hepatic failure without coma; K21.9 Gastro-esophageal reflux disease without esophagitis; D50.9 Iron deficiency anemia, unspecified; K52.9 Noninfective gastroenteritis and colitis, unspecified; K70.31 Alcoholic cirrhosis of liver with ascites; F41.9 Anxiety disorder, unspecified; I10 Essential (primary) hypertension; E87.6 Hypokalemia; F10.20 Alcohol dependence, uncomplicated; L29.8 Other pruritus; Z11.52 Encounter for screening for COVID-19; Z68.26 Body mass index [BMI] 26.0-26.9, adult; Z90.49 Acquired absence of other specified parts of digestive tract; Z98.890 Other specified postprocedural states; Z91.148 Patient's other noncompliance with medication regimen for other reason; D69.6 Thrombocytopenia, unspecified; Z79.899 Other long term (current) drug therapy
CPT/HCPCS: 0241U; 36415; 36430; 71045; 71260; 74177; 80053; 80202; 80305-QW; 80307; 81001; 82140; 82150; 82550; 82803; 82947; 83036; 83605; 83690; 83735; 83880; 84145; 84484; 85025; 85379; 85610; 85730; 86140; 86850; 86900; 86901; 86920; 86922; 87040; 87070; 87077; 87186; 87205; 93005; 93010; 94010; 94667; 96365; 96366; 96375; 99233; 99238; 99285; 99285-25; A9270-GY; C9113; J1100; J1200; J1940; J2405; J2543; J3370; J3411; J3430; J3475; J3490; J7030; J7040; J7050; J7120; P9016; P9047; Q9967

== ENCOUNTER 2023-05-02 21:07 | Emergency (ER) | payer MEDICAID ==
[2023-05-02] MEDS ORDERED: Sodium Chloride 0.9% 10 ML Syringe FLUSH PRN (21:17)
[2023-05-02 21:27] LABS: BASOPHILS PERCENT AUTO 0.7 % (0.0-1.0); EOSINOPHILS PERCENT AUTO 9.8 % (1.0-3.0); HEMATOCRIT 22.4 % (40.0-54.0); HEMOGLOBIN 7.2 g/dL (14.0-18.0); LYMPHOCYTES PERCENT AUTO 32.2 % (20.5-50.1); MEAN CORPUSCULAR HEMOGLOBIN 31.3 pg (27.0-34.0); MEAN CORPUSCULAR HGB CONC 32.1 g/dL (33.0-35.0); MEAN CORPUSCULAR VOLUME 97.4 fL (80-100); MONOCYTES PERCENT AUTO 14.4 % (2-8); NEUTROPHILS PERCENT AUTO 42.9 % (42.2-75.2); PLATELET COUNT,PLT 83 10^3/uL (150-450); WHITE BLOOD CELL COUNT,WBC 5.4 10^3/uL (5.0-10.0)
[2023-05-02 21:46] LABS: ALBUMIN 2.8 g/dL (3.4-5.0); BILIRUBIN TOTAL 3.7 mg/dL (0.2-1.0); BUN/CREATININE RATIO 12.3 (No establ ref range); CALCIUM 8.5 mg/dL (8.5-10.1); CREATININE 1.06 mg/dL (0.70-1.30); EST CRCL DRUG DOSING (CG) 120.25 mL/min
[2023-05-02 21:47] LABS: A/G RATIO 0.67
[2023-05-02 22:39] LABS: APPEARANCE,URINE CLEAR (CLEAR); BILIRUBIN,URINE NEGATIVE (NEGATIVE); COLOR,URINE YELLOW (YELLOW); GLUCOSE,URINE NEGATIVE (NEGATIVE); KETONES,URINE NEGATIVE (NEGATIVE); LEUKOCYTE ESTERASE,URINE NEGATIVE (NEGATIVE); NITRITE,URINE NEGATIVE (NEGATIVE); OCCULT BLOOD,URINE NEGATIVE (NEGATIVE); PROTEIN,URINE NEGATIVE (NEGATIVE)
[2023-05-03] MEDS ORDERED: Lactulose Soln 10 GM/15 ML 30 ML UD Cup PO ONE (00:47)
[2023-05-03 02:21] VITALS: BP 115/78; PULSE 106
== END 2023-05-03 02:20 | disposition home or self-care (01) ==
LOC: DL.ED 21:07
DX: E72.20 Disorder of urea cycle metabolism, unspecified (principal); D64.9 Anemia, unspecified; Z86.16 Personal history of COVID-19
CPT/HCPCS: 36415; 36430; 80053; 81003; 82140; 85025; 86850; 86900; 86901; 86920; 86922; 99283; 99284; A9270-GY; J3490; P9016

== ENCOUNTER 2023-06-26 14:01 | Emergency (ER) | payer MEDICAID ==
[2023-06-26] MEDS: Sodium Chloride 0.9% 10 ML Syringe FLUSH PRN ×2 (14:40→14:46)
[2023-06-26] MEDS ORDERED: Acetaminophen 325 MG Tab PO ONE (14:41)
[2023-06-26] MEDS ORDERED: Lactated Ringers 1,000 ML IV SCH (14:45)
[2023-06-26 14:46] LABS: BASOPHILS PERCENT AUTO 0.2 % (0.0-1.0); EOSINOPHILS PERCENT AUTO 0.9 % (1.0-3.0); HEMATOCRIT 22.7 % (40.0-54.0); LYMPHOCYTES PERCENT AUTO 6.1 % (20.5-50.1); MEAN CORPUSCULAR HEMOGLOBIN 25.6 pg (27.0-34.0); MEAN CORPUSCULAR VOLUME 85.3 fL (80-100); MONOCYTES PERCENT AUTO 1.1 % (2-8); NEUTROPHILS PERCENT AUTO 91.7 % (42.2-75.2); PLATELET COUNT,PLT 122 10^3/uL (150-450); RED BLOOD CELL COUNT 2.66 10^6/uL (4.6-6.2); WHITE BLOOD CELL COUNT,WBC 5.7 10^3/uL (5.0-10.0)
[2023-06-26 14:47] LABS: HEMOGLOBIN 6.8 g/dL (14.0-18.0)
[2023-06-26 14:56] LABS: ALBUMIN 1.6 g/dL (3.4-5.0); ANION GAP 20.4 mEq/L (7-13); BILIRUBIN TOTAL 4.9 mg/dL (0.2-1.0); BUN/CREATININE RATIO 9.2 (No establ ref range); CALCIUM 6.8 mg/dL (8.5-10.1); CREATININE 1.3 mg/dL (0.70-1.30); EST CRCL DRUG DOSING (CG) 98.05 mL/min; MAGNESIUM 1.6 mg/dL (1.8-2.4); POTASSIUM,K 3.4 mmol/L (3.5-5.1); PROTEIN TOTAL,TP 6.2 g/dL (6.4-8.2)
[2023-06-26] MEDS ORDERED: cefTRIAXone 1 GM Vial IVPUSH ONE (14:56)
[2023-06-26 14:58] LABS: A/G RATIO 0.35
[2023-06-26] MEDS ORDERED: Levofloxacin/Dextrose 5%-Water 750 MG in Premix Bag 1 BAG IV ONE (15:01)
[2023-06-26 15:15] LABS: LACTIC ACID 7.5 mmol/L (0.4-2.0)
[2023-06-26 15:35] LABS: INR 1.8 (0.9-1.2); PROTHROMBIN TIME 18.3 SEC (9.0-12.0)
[2023-06-26 15:39] LABS: CORONAVIRUS COVID-19 NAA NEGATIVE (NEGATIVE); INFLUENZA A NAA NEGATIVE (NEGATIVE); INFLUENZA B NAA NEGATIVE (NEGATIVE); RESPIRATORY SYNCYTIAL VIR NAA NEGATIVE (NEGATIVE)
[2023-06-26 15:42] LABS: D-DIMER QUANTITATIVE > 5000 ng/mL (0-400)
[2023-06-26] MEDS ORDERED: Potassium Chloride 10 MEQ Tab.ER PO ONE (17:01)
[2023-06-26 17:30] VITALS: BP 111/61; PULSE 121
== END 2023-06-26 17:41 ==
LOC: DL.ED 14:01
DX: F10.129 Alcohol abuse with intoxication, unspecified (principal); E87.6 Hypokalemia; E83.42 Hypomagnesemia; D69.6 Thrombocytopenia, unspecified; G93.41 Metabolic encephalopathy; D62 Acute posthemorrhagic anemia; I12.9 Hypertensive chronic kidney disease with stage 1 through stage 4 chronic kidney disease, or unspecified chronic kidney disease; N18.30 Chronic kidney disease, stage 3 unspecified; E87.20 Acidosis, unspecified; K21.9 Gastro-esophageal reflux disease without esophagitis; Z86.16 Personal history of COVID-19; Z79.899 Other long term (current) drug therapy
CPT/HCPCS: 0241U; 36415; 36430; 51702; 80053; 80307; 82140; 83605; 83735; 85025; 85379; 85610; 86850; 86900; 86901; 86920; 86922; 87040; 96361; 96365; 96375; 99285; A9270; C1758; J0696; J1956; J7120; P9016; 87077; 93010; J3490

== ENCOUNTER 2023-08-15 21:13 | Emergency (ER) | payer MEDICAID ==
[2023-08-15 22:02] LABS: BASOPHILS PERCENT AUTO 0.2 % (0.0-1.0); EOSINOPHILS PERCENT AUTO 3.4 % (1.0-3.0); LYMPHOCYTES PERCENT AUTO 17.5 % (20.5-50.1); MEAN CORPUSCULAR HEMOGLOBIN 31.8 pg (27.0-34.0); MEAN CORPUSCULAR HGB CONC 33.2 g/dL (33.0-35.0); MONOCYTES PERCENT AUTO 12.9 % (2-8); PLATELET COUNT,PLT 64 10^3/uL (150-450); RED BLOOD CELL COUNT 1.98 10^6/uL (4.6-6.2); WHITE BLOOD CELL COUNT,WBC 8.8 10^3/uL (5.0-10.0)
[2023-08-15 22:07] LABS: APPEARANCE,URINE CLEAR (CLEAR); BILIRUBIN,URINE NEGATIVE (NEGATIVE); COLOR,URINE YELLOW (YELLOW); GLUCOSE,URINE NEGATIVE (NEGATIVE); KETONES,URINE NEGATIVE (NEGATIVE); LEUKOCYTE ESTERASE,URINE NEGATIVE (NEGATIVE); NITRITE,URINE NEGATIVE (NEGATIVE); OCCULT BLOOD,URINE TRACE-INTACT (NEGATIVE); PROTEIN,URINE NEGATIVE (NEGATIVE); UROBILINOGEN,URINE 0.2 mg/dL (0.2-1.0)
[2023-08-15 22:19] LABS: HEMOGLOBIN 6.3 g/dL (14.0-18.0)
[2023-08-15 22:28] LABS: B-TYPE NATRIURETIC PEPTIDE,BNP 74 pg/ml (0-100)
[2023-08-15 22:29] LABS: ALANINE AMINOTRANSFERASE,ALT 33 U/L (16-63); ALBUMIN 2.4 g/dL (3.4-5.0); ALKALINE PHOSPHATASE 192 U/L (46-116); AMYLASE 288 U/L (25-115); ANION GAP 12.6 mEq/L (7-13); ASPARTATE AMNIOTRANSFERASE,AST 55 U/L (15-37); BILIRUBIN TOTAL 9.4 mg/dL (0.2-1.0); BLOOD UREA NITROGEN,BUN 8 mg/dL (7-18); BUN/CREATININE RATIO 8.6 (No establ ref range); C-REACTIVE PROTEIN 1.62 ng/dL (<=0.50); CALCIUM 7.3 mg/dL (8.5-10.1); CARBON DIOXIDE,CO2 25 mmol/L (21-32); CHLORIDE,CL 100 mmol/L (98-107); CREATININE 0.93 mg/dL (0.70-1.30); EST CRCL DRUG DOSING (CG) 137.06 mL/min; ETHANOL BLOOD MEDICAL 111 mg/dL (0); GLUCOSE RANDOM 138 mg/dL (70-99); MAGNESIUM 1.5 mg/dL (1.8-2.4); POTASSIUM,K 3.6 mmol/L (3.5-5.1); PROTEIN TOTAL,TP 7.1 g/dL (6.4-8.2); SODIUM,NA 134 mmol/L (136-145)
[2023-08-15 22:33] LABS: AMPHETAMINES,URINE NEGATIVE (NEGATIVE); BARBITURATES,URINE NEGATIVE (NEGATIVE); BENZODIAZEPINE,URINE NEGATIVE (NEGATIVE); MDMA (ECSTASY), URINE NEGATIVE (NEGATIVE); METHADONE,URINE NEGATIVE (NEGATIVE); METHAMPHETAMINES,URINE NEGATIVE (NEGATIVE); OPIATES,URINE NEGATIVE (NEGATIVE); OXYCODONE,URINE POSITIVE (NEGATIVE); PHENCYCLIDINE,URINE NEGATIVE (NEGATIVE); TCA,URINE NEGATIVE (NEGATIVE)
[2023-08-15 22:34] LABS: AMORPHOUS SEDIMENT,URINE RARE /HPF (NOT SEEN); BACTERIA,URINE RARE /HPF (0-FEW/HPF); EPITHELIAL CELLS,URINE RARE /HPF (NOT SEEN); MUCUS,URINE FEW /LPF (NOT SEEN); RBC,URINE 0-5 /HPF (0-5); WBC,URINE 0-5 /HPF (0-5/HPF)
[2023-08-15 22:37] LABS: LACTIC ACID 2.1 mmol/L (0.4-2.0)
[2023-08-15 22:40] LABS: A/G RATIO 0.51; ESTIMATED GFR 108 mL/min (>=60); LIPASE > 250 U/L (16-77)
[2023-08-15] MEDS: Iopamidol 612 MG/ML 100 ML Bottle IVPUSH ONE (22:52)
[2023-08-15 22:55] LABS: PROTHROMBIN TIME 21.9 SEC (9.0-12.0)
[2023-08-15 22:56] LABS: INR 2.2 (0.9-1.2)
[2023-08-15] MEDS: HYDROmorphone 1 MG/ML Syringe IVPUSH ONE (22:59)
[2023-08-15 23:16] LABS: CORONAVIRUS COVID-19 NAA NEGATIVE (NEGATIVE); INFLUENZA A NAA NEGATIVE (NEGATIVE); INFLUENZA B NAA NEGATIVE (NEGATIVE); RESPIRATORY SYNCYTIAL VIR NAA NEGATIVE (NEGATIVE)
[2023-08-16] MEDS: Sodium Chloride 0.9% 10 ML Syringe FLUSH PRN (00:02)
[2023-08-16 00:19] VITALS: BP 150/92; PULSE 109
== END 2023-08-16 00:58 ==
LOC: DL.ED 21:13
DX: K85.20 Alcohol induced acute pancreatitis without necrosis or infection (principal); D64.9 Anemia, unspecified; K76.9 Liver disease, unspecified; I10 Essential (primary) hypertension; Z79.899 Other long term (current) drug therapy
CPT/HCPCS: 0241U; 36415; 36430; 71045; 74177; 80053; 80305-QW; 80307; 81001; 82140; 82150; 82272; 83605; 83690; 83735; 83880; 84145; 84484; 85025; 85610; 85730; 86140; 86850; 86900; 86901; 86920; 86922; 87040; 93005; 93010; 96374; 99285; 99285-25; J1170; J3490; P9016; Q9967

== ENCOUNTER 2023-09-11 08:57 | Emergency (ER) | payer MEDICAID ==
[2023-09-11 09:17] VITALS: BP 130/74; PULSE 86
[2023-09-11] MEDS: Dexamethasone 4 MG/ML SDV IM ONE (09:23)
[2023-09-11] MEDS: oxyCODONE 5 MG Tab PO ONE ×2 (09:44→10:30)
== END 2023-09-11 10:58 | disposition home or self-care (01) ==
LOC: DL.ED 08:57
DX: M43.16 Spondylolisthesis, lumbar region (principal); M47.26 Other spondylosis with radiculopathy, lumbar region; I10 Essential (primary) hypertension; Z86.16 Personal history of COVID-19; Z79.899 Other long term (current) drug therapy
CPT/HCPCS: 72131; 96372; 99284; A9270; J1100

== ENCOUNTER 2023-09-20 04:31 | Emergency (ER) | payer MEDICAID ==
[2023-09-20 04:52] VITALS: BP 148/86; PULSE 103
[2023-09-20 05:05] LABS: APPEARANCE,URINE SLIGHTLY CLOUDY (CLEAR); BILIRUBIN,URINE NEGATIVE (NEGATIVE); COLOR,URINE DARK YELLOW (YELLOW); GLUCOSE,URINE NEGATIVE (NEGATIVE); KETONES,URINE NEGATIVE (NEGATIVE); LEUKOCYTE ESTERASE,URINE NEGATIVE (NEGATIVE); NITRITE,URINE NEGATIVE (NEGATIVE); OCCULT BLOOD,URINE NEGATIVE (NEGATIVE); PH,URINE 7.5 (5.0-9.0); PROTEIN,URINE NEGATIVE (NEGATIVE)
[2023-09-20 05:15] LABS: AMPHETAMINES,URINE NEGATIVE (NEGATIVE); BARBITURATES,URINE NEGATIVE (NEGATIVE); BENZODIAZEPINE,URINE NEGATIVE (NEGATIVE); MDMA (ECSTASY), URINE NEGATIVE (NEGATIVE); METHADONE,URINE NEGATIVE (NEGATIVE); METHAMPHETAMINES,URINE NEGATIVE (NEGATIVE); OPIATES,URINE NEGATIVE (NEGATIVE); OXYCODONE,URINE POSITIVE (NEGATIVE); PHENCYCLIDINE,URINE NEGATIVE (NEGATIVE); TCA,URINE NEGATIVE (NEGATIVE)
[2023-09-20] MEDS: Orphenadrine 60 MG/2 ML Inj IM ONE (07:53)
[2023-09-20] MEDS: HYDROmorphone 1 MG/ML Syringe IM ONE (07:54)
== END 2023-09-20 08:30 | disposition home or self-care (01) ==
LOC: DL.ED 04:31
DX: G89.29 Other chronic pain (principal); M54.50 Low back pain, unspecified; I10 Essential (primary) hypertension; Z79.899 Other long term (current) drug therapy; Z86.16 Personal history of COVID-19; W19.XXXA Unspecified fall, initial encounter
CPT/HCPCS: 80305-QW; 81003; 82947; 96372; 99284; J1170; J2360

== ENCOUNTER 2023-09-21 14:23 | Emergency (ER) | payer MEDICAID ==
[2023-09-21 14:48] VITALS: BP 150/73; PULSE 106
[2023-09-21] MEDS: Iopamidol 612 MG/ML 100 ML Bottle IARTIC ONE (15:41)
[2023-09-21] MEDS: Iopamidol 612 MG/ML 100 ML Bottle IVPUSH ONE (15:51)
[2023-09-21] MEDS: Sodium Chloride 0.9% 10 ML Syringe FLUSH PRN (15:59)
[2023-09-21] MEDS: Ondansetron 4 MG/2 ML SDV IVPUSH ONE (15:59)
[2023-09-21 16:01] LABS: ALBUMIN 2.4 g/dL (3.4-5.0); ANION GAP 9.3 mEq/L (7-13); BILIRUBIN TOTAL 11.4 mg/dL (0.2-1.0); BUN/CREATININE RATIO 28.8 (No establ ref range); CALCIUM 7.8 mg/dL (8.5-10.1); CREATININE 0.66 mg/dL (0.70-1.30); EST CRCL DRUG DOSING (CG) 191.72 mL/min; POTASSIUM,K 4.3 mmol/L (3.5-5.1); PROTEIN TOTAL,TP 6.6 g/dL (6.4-8.2)
[2023-09-21 16:03] LABS: A/G RATIO 0.57
== END 2023-09-21 17:35 | disposition home or self-care (01) ==
LOC: DL.ED 14:23
DX: K70.31 Alcoholic cirrhosis of liver with ascites (principal); I10 Essential (primary) hypertension; Z79.899 Other long term (current) drug therapy; Z86.19 Personal history of other infectious and parasitic diseases; Z86.16 Personal history of COVID-19
CPT/HCPCS: 36415; 74177; 80053; 83605; 96374; 99284; J2405; Q9967; J3490

== ENCOUNTER 2023-09-30 18:52 | Emergency (ER) | payer MEDICAID ==
[2023-09-30] MEDS: Sodium Chloride 0.9% 10 ML Syringe FLUSH PRN (19:36)
[2023-09-30 20:04] VITALS: BP 134/71; PULSE 97
== END 2023-09-30 19:42 | disposition home or self-care (01) ==
LOC: DL.ED 18:52
DX: T82.838A Hemorrhage due to vascular prosthetic devices, implants and grafts, initial encounter (principal); I10 Essential (primary) hypertension; Z79.899 Other long term (current) drug therapy; Z86.16 Personal history of COVID-19
CPT/HCPCS: 96523; 99282; 99284; J1642; J3490

== ENCOUNTER 2023-10-02 10:06 | Emergency (ER) | payer MEDICAID ==
[2023-10-02 10:40] LABS: BASOPHILS PERCENT AUTO 0.3 % (0.0-1.0); EOSINOPHILS PERCENT AUTO 2.4 % (1.0-3.0); HEMATOCRIT 23.9 % (40.0-54.0); HEMOGLOBIN 8.1 g/dL (14.0-18.0); MEAN CORPUSCULAR HEMOGLOBIN 35.1 pg (27.0-34.0); MEAN CORPUSCULAR HGB CONC 33.9 g/dL (33.0-35.0); MEAN CORPUSCULAR VOLUME 103.5 fL (80-100); MONOCYTES PERCENT AUTO 16.6 % (2-8); NEUTROPHILS PERCENT AUTO 67.7 % (42.2-75.2); PLATELET COUNT,PLT 41 10^3/uL (150-450); RED BLOOD CELL COUNT 2.31 10^6/uL (4.6-6.2); WHITE BLOOD CELL COUNT,WBC 6.2 10^3/uL (5.0-10.0)
[2023-10-02] MEDS: Sodium Chloride 0.9% 10 ML Syringe FLUSH PRN (10:41)
[2023-10-02 10:45] LABS: APPEARANCE,URINE CLEAR (CLEAR); BILIRUBIN,URINE SMALL (NEGATIVE); COLOR,URINE YELLOW (YELLOW); GLUCOSE,URINE NEGATIVE (NEGATIVE); KETONES,URINE NEGATIVE (NEGATIVE); LEUKOCYTE ESTERASE,URINE NEGATIVE (NEGATIVE); NITRITE,URINE NEGATIVE (NEGATIVE); OCCULT BLOOD,URINE NEGATIVE (NEGATIVE); PROTEIN,URINE NEGATIVE (NEGATIVE)
[2023-10-02 11:02] LABS: ALANINE AMINOTRANSFERASE,ALT 55 U/L (16-63); ALKALINE PHOSPHATASE 166 U/L (46-116); ANION GAP 10.2 mEq/L (7-13); ASPARTATE AMNIOTRANSFERASE,AST 59 U/L (15-37); BILIRUBIN TOTAL 10.6 mg/dL (0.2-1.0); BLOOD UREA NITROGEN,BUN 12 mg/dL (7-18); BUN/CREATININE RATIO 18.8 (No establ ref range); CALCIUM 7.2 mg/dL (8.5-10.1); CARBON DIOXIDE,CO2 26 mmol/L (21-32); CHLORIDE,CL 97 mmol/L (98-107); CREATININE 0.64 mg/dL (0.70-1.30); GLUCOSE RANDOM 96 mg/dL (70-99); POTASSIUM,K 3.2 mmol/L (3.5-5.1); PROTEIN TOTAL,TP 6.3 g/dL (6.4-8.2); SODIUM,NA 130 mmol/L (136-145)
[2023-10-02 11:05] LABS: LACTIC ACID 1.6 mmol/L (0.4-2.0)
[2023-10-02 11:10] LABS: A/G RATIO 0.47; ESTIMATED GFR 125 mL/min (>=60); ETHANOL BLOOD MEDICAL < 3 mg/dL (0)
[2023-10-02 11:11] LABS: AMPHETAMINES,URINE NEGATIVE (NEGATIVE); BARBITURATES,URINE NEGATIVE (NEGATIVE); BENZODIAZEPINE,URINE NEGATIVE (NEGATIVE); MDMA (ECSTASY), URINE NEGATIVE (NEGATIVE); METHADONE,URINE NEGATIVE (NEGATIVE); METHAMPHETAMINES,URINE NEGATIVE (NEGATIVE); OPIATES,URINE NEGATIVE (NEGATIVE); TCA,URINE NEGATIVE (NEGATIVE)
[2023-10-02 11:12] LABS: OXYCODONE,URINE POSITIVE (NEGATIVE); PHENCYCLIDINE,URINE NEGATIVE (NEGATIVE)
[2023-10-02 11:12] LABS: INR 1.6 (0.9-1.2); PTT,PARTIAL THROMBOPLSTIN TIME 36.1 SEC (22.0-34.0)
[2023-10-02 11:23] LABS: CORONAVIRUS COVID-19 NAA NEGATIVE (NEGATIVE); INFLUENZA A NAA NEGATIVE (NEGATIVE); INFLUENZA B NAA NEGATIVE (NEGATIVE); RESPIRATORY SYNCYTIAL VIR NAA NEGATIVE (NEGATIVE)
[2023-10-02 11:34] VITALS: BP 117/68; PULSE 104
[2023-10-02] MEDS: Cefepime 2 GM Vial IVPUSH ONE (11:52)
== END 2023-10-02 12:35 ==
LOC: DL.ED 10:06
DX: T80.211A Bloodstream infection due to central venous catheter, initial encounter (principal); T82.838A Hemorrhage due to vascular prosthetic devices, implants and grafts, initial encounter; J18.9 Pneumonia, unspecified organism; J90 Pleural effusion, not elsewhere classified; D64.9 Anemia, unspecified; K70.31 Alcoholic cirrhosis of liver with ascites; I10 Essential (primary) hypertension; Z79.899 Other long term (current) drug therapy; Z86.16 Personal history of COVID-19
CPT/HCPCS: 0241U; 36415; 71045; 80053; 80305; 80307; 81003; 82140; 83605; 84145; 85025; 85610; 85730; 87040; 96374; 99285; J0692; J3490

== ENCOUNTER 2024-06-08 06:47 | Emergency (ER) | payer MEDICAID, OTHER ==
[2024-06-08 06:25] LABS: HEMATOCRIT 29.3 % (40.0-54.0); HEMOGLOBIN 9.4 g/dL (14.0-18.0); MEAN CORPUSCULAR HGB CONC 32.1 g/dL (33.0-35.0); MEAN CORPUSCULAR VOLUME 96.7 fL (80-100); PLATELET COUNT,PLT 104 10^3/uL (150-450); RED BLOOD CELL COUNT 3.03 10^6/uL (4.6-6.2); WHITE BLOOD CELL COUNT,WBC 10.5 10^3/uL (5.0-10.0)
[2024-06-08 06:29] LABS: BASOPHILS PERCENT AUTO 0.2 % (0.0-1.0); EOSINOPHILS PERCENT AUTO 2.5 % (1.0-3.0); LYMPHOCYTES PERCENT AUTO 28.2 % (20.5-50.1); NEUTROPHILS PERCENT AUTO 64.1 % (42.2-75.2)
[2024-06-08] MEDS: Sodium Chloride 0.9% 1,000 ML IV ONE (06:35)
[2024-06-08] MEDS: Iopamidol 612 MG/ML 100 ML Bottle IVPUSH ONE (06:41)
[2024-06-08 06:45] LABS: INR 1.4 (0.9-1.2)
[2024-06-08 06:50] LABS: A/G RATIO 0.48; ALANINE AMINOTRANSFERASE,ALT 29 U/L (16-63); ALBUMIN 2.2 g/dL (3.4-5.0); ALKALINE PHOSPHATASE 287 U/L (46-116); ANION GAP 14.8 mEq/L (7-13); ASPARTATE AMNIOTRANSFERASE,AST 74 U/L (15-37); BILIRUBIN TOTAL 2.5 mg/dL (0.2-1.0); BLOOD UREA NITROGEN,BUN 11 mg/dL (7-18); BUN/CREATININE RATIO 11.5 (No establ ref range); CALCIUM 7.8 mg/dL (8.5-10.1); CARBON DIOXIDE,CO2 23 mmol/L (21-32); CHLORIDE,CL 107 mmol/L (98-107); CREATININE 0.96 mg/dL (0.70-1.30); ESTIMATED GFR 104 mL/min (>=60); ETHANOL BLOOD MEDICAL 267 mg/dL (0); GLUCOSE RANDOM 175 mg/dL (70-99); MAGNESIUM 1.9 mg/dL (1.8-2.4); POTASSIUM,K 2.8 mmol/L (3.5-5.1); PROTEIN TOTAL,TP 6.8 g/dL (6.4-8.2); SODIUM,NA 142 mmol/L (136-145)
[2024-06-08 07:27] LABS: BAND PERCENT MAN 1 %; LYMPHOCYTES PERCENT MAN 27 % (20-50); MONOCYTES PERCENT MAN 3 % (2-8); SEG NEUTROPHILS PERCENT MAN 69 % (42-75)
[2024-06-08] MEDS ORDERED: Potassium Chloride 10 MEQ in Premix Bag 1 BAG IV ONE ×3 (07:42→08:47)
[2024-06-08] MEDS: Potassium Chloride 10 MEQ in Premix Bag 1 BAG IV ONE (08:00)
[2024-06-08] MEDS: Tranexamic Acid 1,000 MG in Sodium Chloride 0.9% 100 ML IV ONE (08:30)
[2024-06-08] MEDS ORDERED: fentaNYL 100 MCG/2 ML SDV IVPUSH ONE (08:36)
[2024-06-08] MEDS ORDERED: fentaNYL 100 MCG/2 ML SDV IV ONE (08:37)
[2024-06-08 08:48] LABS: HEMATOCRIT 20.2 % (40.0-54.0); HEMOGLOBIN 6.4 g/dL (14.0-18.0)
[2024-06-08] MEDS: Potassium Chloride 10 MEQ in Premix Bag 1 BAG IV SCH (09:00)
[2024-06-08] MEDS: Morphine 2 MG/ML SYRINGE IVPUSH ONE (09:10)
[2024-06-08] MEDS: ceFAZolin 2 GM Vial IVPUSH ONE (09:13)
== END 2024-06-08 10:42 ==
LOC: DL.ED 06:47
DX: S02.40DB Maxillary fracture, left side, initial encounter for open fracture (principal); S02.40CB Maxillary fracture, right side, initial encounter for open fracture; S02.19XB Other fracture of base of skull, initial encounter for open fracture; S02.832B Fracture of medial orbital wall, left side, initial encounter for open fracture; S02.32XB Fracture of orbital floor, left side, initial encounter for open fracture; S02.831 Fracture of medial orbital wall, right side; S02.31XB Fracture of orbital floor, right side, initial encounter for open fracture; S02.2XXB Fracture of nasal bones, initial encounter for open fracture; F10.120 Alcohol abuse with intoxication, uncomplicated; E87.6 Hypokalemia; D64.9 Anemia, unspecified; I10 Essential (primary) hypertension; Z86.16 Personal history of COVID-19; Z79.899 Other long term (current) drug therapy; Y90.8 Blood alcohol level of 240 mg/100 ml or more; V49.59XA Passenger injured in collision with other motor vehicles in traffic accident, initial encounter
CPT/HCPCS: 12002; 36415; 36430; 70450; 70487; 71260; 72125; 74177; 80053; 80307; 83735; 84484; 85014; 85018; 85025; 85610; 86850; 86900; 86901; 86920; 86922; 93010; 96361; 96365; 96366; 96375; 99285; J0690; J2270; J3010; J3480; J7030; J7040; P9016; Q9967

== ENCOUNTER 2024-11-04 03:37 | Emergency (ER) | payer MEDICAID ==
[2024-11-04] MEDS ORDERED: Sodium Chloride 0.9% 10 ML Syringe FLUSH PRN (03:40)
[2024-11-04] MEDS: Diltiazem 25 MG/5 ML SDV IVPUSH ONE (03:51)
[2024-11-04 03:55] LABS: HEMATOCRIT 35.3 % (40.0-54.0); HEMOGLOBIN 11.7 g/dL (14.0-18.0); MEAN CORPUSCULAR HEMOGLOBIN 31.5 pg (27.0-34.0); MEAN CORPUSCULAR HGB CONC 33.1 g/dL (33.0-35.0); MEAN CORPUSCULAR VOLUME 95.1 fL (80-100); PLATELET COUNT,PLT 48 10^3/uL (150-450); RED BLOOD CELL COUNT 3.71 10^6/uL (4.6-6.2); WHITE BLOOD CELL COUNT,WBC 35.5 10^3/uL (5.0-10.0)
[2024-11-04] MEDS ORDERED: Octreotide 100 MCG in Sodium Chloride 0.9% 99 ML IV SCH (04:00)
[2024-11-04] MEDS: LORazepam 2 MG/ML SDV IVPUSH ONE (04:08)
[2024-11-04] MEDS: Pantoprazole 40 MG in Sodium Chloride 0.9% 100 ML IV ONE (04:12)
[2024-11-04] MEDS: Octreotide 100 MCG in Sodium Chloride 0.9% 100 ML IV ONE (04:15)
[2024-11-04] MEDS: Diltiazem 125 MG in Sodium Chloride 0.9% 100 ML IV SCH (04:34)
[2024-11-04 04:35] LABS: ANION GAP 22.9 mEq/L (7-13); BLOOD UREA NITROGEN,BUN 72 mg/dL (8-26); BUN/CREATININE RATIO 14.9 (No establ ref range); CARBON DIOXIDE,CO2 6 mmol/L (23-30); CHLORIDE,CL 98 mmol/L (98-107); CREATININE 4.83 mg/dL (0.51-1.19); EST CRCL DRUG DOSING (CG) 26.13 mL/min; ESTIMATED GFR 15 mL/min (>=60); GLUCOSE RANDOM 64 mg/dL (74-100); POTASSIUM,K 4.9 mmol/L (3.5-4.5); SODIUM,NA 122 mmol/L (138-146)
[2024-11-04 04:38] LABS: LACTIC ACID 14.5 mmol/L (0.4-2.0)
[2024-11-04 04:41] LABS: BAND PERCENT MAN 15 %; INR 2.2 (0.9-1.2); LYMPHOCYTES PERCENT MAN 8 % (20-50); MONOCYTES PERCENT MAN 2 % (2-8); PROTHROMBIN TIME 21.4 SEC (9.0-12.0); SEG NEUTROPHILS PERCENT MAN 75 % (42-75)
[2024-11-04 04:46] LABS: APPEARANCE,URINE SLIGHTLY CLOUDY (CLEAR); BILIRUBIN,URINE LARGE (NEGATIVE); COLOR,URINE YELLOW (YELLOW); GLUCOSE,URINE 100 (NEGATIVE); KETONES,URINE NEGATIVE (NEGATIVE); LEUKOCYTE ESTERASE,URINE NEGATIVE (NEGATIVE); NITRITE,URINE NEGATIVE (NEGATIVE); OCCULT BLOOD,URINE LARGE (NEGATIVE); PH,URINE 6.5 (5.0-9.0); PROTEIN,URINE >=300 (NEGATIVE); UROBILINOGEN,URINE 0.2 mg/dL (0.2-1.0)
[2024-11-04 04:49] LABS: AMPHETAMINES,URINE NEGATIVE (NEGATIVE); BARBITURATES,URINE NEGATIVE (NEGATIVE); BENZODIAZEPINE,URINE NEGATIVE (NEGATIVE); MDMA (ECSTASY), URINE NEGATIVE (NEGATIVE); METHADONE,URINE NEGATIVE (NEGATIVE); METHAMPHETAMINES,URINE NEGATIVE (NEGATIVE); OPIATES,URINE NEGATIVE (NEGATIVE); OXYCODONE,URINE NEGATIVE (NEGATIVE); PHENCYCLIDINE,URINE NEGATIVE (NEGATIVE); TCA,URINE NEGATIVE (NEGATIVE)
[2024-11-04 05:04] LABS: BACTERIA,URINE FEW /HPF (0-FEW/HPF); EPITHELIAL CELLS,URINE FEW /HPF (NOT SEEN); WBC,URINE 0-5 /HPF (0-5/HPF)
[2024-11-04] MEDS ORDERED: VANCOmycin 1 GM in Sodium Chloride 0.9% 250 ML IV ONE (05:10)
[2024-11-04 05:28] LABS: HEMATOCRIT 36.3 % (40.0-54.0); HEMOGLOBIN 11.9 g/dL (14.0-18.0)
[2024-11-04] MEDS: 50% Dextrose in Water 50 ML Syringe IVPUSH ONE ×3 (05:30→06:54)
[2024-11-04] MEDS: Dextrose 5%-0.9% NaCl 1,000 ML IV SCH (05:30)
[2024-11-04] MEDS ORDERED: Piperacillin/Tazobactam 3.375 GM in Sodium Chloride 0.9% 100 ML IV ONE (05:41)
[2024-11-04] MEDS: VANCOmycin 2 GM in Sodium Chloride 0.9% 500 ML IV ONE (05:45)
[2024-11-04] MEDS: Octreotide 100 MCG in Sodium Chloride 0.9% 99 ML IV SCH (06:37)
[2024-11-04] MEDS: Piperacillin/Tazobactam 4.5 GM in Sodium Chloride 0.9% 100 ML IV ONE (06:50)
[2024-11-04] MEDS: Lactated Ringers 3,000 ML IV ONE (06:50)
[2024-11-04 07:24] VITALS: BP 123/51; PULSE 102
[2024-11-04 08:21] LABS: B-TYPE NATRIURETIC PEPTIDE,BNP 355 pg/ml (0-100)
[2024-11-04 08:38] LABS: ALANINE AMINOTRANSFERASE,ALT 116 U/L (16-63); ALBUMIN 1.6 g/dL (3.4-5.0); ALKALINE PHOSPHATASE 374 U/L (46-116); ASPARTATE AMNIOTRANSFERASE,AST 459 U/L (15-37); BILIRUBIN TOTAL 12.4 mg/dL (0.2-1.0); MAGNESIUM 2.9 mg/dL (1.8-2.4); PROTEIN TOTAL,TP 6.5 g/dL (6.4-8.2)
[2024-11-04 08:39] LABS: A/G RATIO 0.33; ETHANOL BLOOD MEDICAL < 3 mg/dL (0)
== END 2024-11-04 07:15 ==
LOC: DL.ED 03:37
DX: E87.20 Acidosis, unspecified (principal); N17.9 Acute kidney failure, unspecified; I10 Essential (primary) hypertension; Z86.16 Personal history of COVID-19; Z79.899 Other long term (current) drug therapy
CPT/HCPCS: 36415; 71045; 80053; 80305; 80307; 81001; 82140; 82947; 83605; 83735; 83880; 84484; 85014; 85018; 85025; 85379; 85610; 86850; 86900; 86901; 86920; 86922; 93005; 96365; 96366; 96368; 96375; 96376; 99285; J2060; J2354; J2470; J2543; J3490; J7040; J7042; J7120